=== PATIENT | female | born 1995 ===

== ENCOUNTER 2019-04-22 20:18 | Inpatient (IN) | payer OTHER ==
[2019-04-22 21:41] LABS: Basophils # (Auto) 0.1 K/mm3 (0.0-0.1); Basophils % (Auto) 0.8 % (0.0-1.8); Eosinophils # (Auto) 0.1 K/mm3 (0.0-0.4); Eosinophils % (Auto) 0.6 % (0.0-4.3); Hematocrit 28.5 % (30.3-42.9); Hemoglobin 9.7 gm/dl (10.1-14.3); Lymphocytes # (Auto) 2.1 K/mm3 (1.2-5.4); Lymphocytes % (Auto) 20.6 % (13.4-35.0); Mean Corpuscular HGB Conc 34 % (30-34); Mean Corpuscular Volume 83 fl (79-97); Monocytes # (Auto) 0.6 K/mm3 (0.0-0.8); Monocytes % (Auto) 6.3 % (0.0-7.3); Platelet Count 208 K/mm3 (140-440); Red Blood Count 3.43 M/mm3 (3.65-5.03); Red Cell Distribution Width 15.7 % (13.2-15.2)
--- NOTE | 2019-04-22 21:45 | History and Physical Report ---
History of Present Illness Date of examination: 04/22/19 Date of admission: 04/22/19 20:18 History of present illness: Patient admitted for induction of labor due to course complicated by gestational diabetes requiring insulin patient poorly controlled with poor compliance to management Menstrual History Regularity: regular Menses every: 28 days Duration: 7 LMP: 07/25/2018 LMP reliability: definite LMP character: normal EDC Calculations LMP: 05/01/2019 EDC Confirmation: 05/01/2019 Past History : 2 Term Births: 0 Premature Births: 0 Living Children: 0 Para: 0 Mult. Births: 0 Prev : 0 Aborta: 1 Elect. 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 of genital herpes: no Partner hx. of genital herpes: no Rash, Viral, or Febrile illness since last LMP? no Varicella/Chicken Pox Status: Unknown Genetic History Congenital Heart Defect: Mom: no Dad: no Jose Armando Disease: Mom: no Dad: no Thalassemia Mom: no Dad: no Neural Tube Defect Mom: no Dad: no Down's Syndrome Mom: no Dad: no Roel-Sachs Mom: no Dad: no Sickle Cell Disease/Trait Mom: no Dad: no Hemophilia Mom: no Dad: no Muscular Dystrophy Mom: no Dad: no Cystic Fibrosis Mom: no Dad: no Riley Chorea Mom: no Dad: no Mental Retardation Mom: no Dad: no Fragile X Mom: no Dad: no Other Genetic/Chromosomal Disorder Mom: no Dad: no Child w/other defect Mom: no Dad: no Enviromental Exposures Xray Exposure: no Medication, drug, or alcohol use since LMP: no Chemical/Other Exposure: no Exposure to Cat Liter: no Hx of Parvovirus (Fifth Disease): no Occupational Exposure to Children: none Current Allergies (reviewed today): No known allergies Past History Past Medical History: other (See HPI) Past Surgical History: D&C, other (See HPI) Family/Genetic History: other (See HPI) Social history: other (See HPI) - Obstetrical History Expected Date of Delivery: 05/01/19 Actual Gestation: 38 Week(s) 6 Day(s) : 2 Para: 0 Hx # Term Pregnancies: 0 Number of Pregnancies: 0 Spontaneous Abortions: 1 Induced : 0 Number of Living Children: 0 Medications and Allergies Allergies Allergy/AdvReac Type Severity Reaction Status Date / Time No Known Allergies Allergy Verified 04/22/19 22:03 Home Medications Medication Instructions Recorded Confirmed Last Taken Type Insulin NPH Human Isophane 04/22/19 04/19/19 History [Novolin N] Insulin Regular, Human [Novolin R] 04/22/19 04/19/19 History Lancets [Trueplus Lancets] 04/22/19 04/19/19 History Lancets [Trueplus Lancets] 04/22/19 04/19/19 History - Vital Signs Vital signs: Vital Signs Pulse Pulse Ox 83 96 04/22/19 20:32 04/22/19 20:32 Temp Pulse Resp BP Pulse Ox 99.2 F 82 18 125/83 96 04/22/19 20:33 04/22/19 21:37 04/22/19 20:33 04/22/19 20:34 04/22/19 21:37 - Physical Exam Breasts: Positive: deferred Lungs: Positive: Normal air movement Abdomen: Positive: normal appearance, soft, normal bowel sounds Cervix: Positive: other (per RN) - Obstetrical Uterine Contraction Pattern: Absent Results Result Diagrams: 04/22/19 22:10 All other labs normal. Assessment and Plan - Patient Problems (1) Gestational diabetes Current Visit: Yes Status: Acute Qualifiers: Gestational diabetes mellitus control: unspecified Trimester: third trimester Qualified Code(s): O24.419 - Gestational diabetes mellitus in , unspecified control Plan to address problem: We'll monitor blood sugars on induction initial blood sugar was 80. Patient received Cervidil was seen for cervical ripening with Pitocin plan for in the morning (2) 38 weeks gestation of Current Visit: Yes Status: Acute
[2019-04-22] MEDS ORDERED: BRETHINE SUB-Q PRN (21:51)
[2019-04-22] MEDS ORDERED: BRETHINE IVP PRN (21:51)
[2019-04-22] MEDS ORDERED: PHENERGAN PO PRN (21:51)
[2019-04-22] MEDS ORDERED: XYLOCAINE 2% INFILTRATI ONE (21:51)
[2019-04-22] MEDS ORDERED: CERVIDIL VG ONE (22:00)
[2019-04-22] MEDS ORDERED: PITOCin/NS 20 UNIT/1000ML DRIP 20 UNITS/1,000 ML BAG IV SCH (22:00)
[2019-04-22] MEDS: LACTATED RINGERS 1,000 ML IV SCH (22:19)
[2019-04-22 22:22] LABS: Hematocrit 28.6 % (30.3-42.9); Hemoglobin 9.9 gm/dl (10.1-14.3)
--- NOTE | 2019-04-23 07:23 | Progress Note ---
Assessment and Plan pt resting, no complaints. cervidil removed, SVE unchanged from last. cervix long but soft. Will allow breakfast and then start pitocin for IOL. reviewed with patient, all questions addressed. - Patient Problems (1) Polyhydramnios Current Visit: Yes Status: Acute Qualifiers: Fetus number: single or unspecified fetus Trimester: third trimester Qualified Code(s): O40.3XX0 - Polyhydramnios, third trimester, not applicable or unspecified (2) 38 weeks gestation of Current Visit: Yes Status: Acute (3) Gestational diabetes Current Visit: Yes Status: Acute Qualifiers: Gestational diabetes mellitus control: unspecified Trimester: third trimester Qualified Code(s): O24.419 - Gestational diabetes mellitus in , unspecified control Plan to address problem: 2199 ADA diet monitor accuchecks no insulin orders at this time. Subjective - Subjective Date of service: 04/23/19 Principal diagnosis: IOL for Polyhydramnios, poorly controlled GDM on insulin Patient reports: movement normal, no new complaints, no loss of fluid, no vaginal bleeding, no contractions Objective - Vital Signs Vital Signs: Vital Signs - 12hr 04/22/19 04/22/19 04/22/19 20:32 20:33 20:34 Temperature 99.2 F Pulse Rate 83 76 77 Respiratory 18 Rate Blood Pressure 125/83 Blood Pressure 125/83 [Left] O2 Sat by Pulse 96 96 93 Oximetry 04/22/19 04/22/19 04/22/19 20:37 20:42 20:47 Temperature Pulse Rate 80 82 77 Respiratory Rate Blood Pressure Blood Pressure [Left] O2 Sat by Pulse 96 94 97 Oximetry 04/22/19 04/22/19 04/22/19 20:52 20:57 21:02 Temperature Pulse Rate 77 77 87 Respiratory Rate Blood Pressure Blood Pressure [Left] O2 Sat by Pulse 96 96 96 Oximetry 04/22/19 04/22/19 04/22/19 21:07 21:08 21:12 Temperature Pulse Rate 80 85 70 Respiratory Rate Blood Pressure Blood Pressure [Left] O2 Sat by Pulse 97 84 96 Oximetry 04/22/19 04/22/19 04/22/19 21:17 21:22 21:27 Temperature Pulse Rate 75 75 75 Respiratory Rate Blood Pressure Blood Pressure [Left] O2 Sat by Pulse 97 97 96 Oximetry 04/22/19 04/22/1919 21:32 21:37 21:42 Temperature Pulse Rate 71 82 84 Respiratory Rate Blood Pressure Blood Pressure [Left] O2 Sat by Pulse 97 96 97 Oximetry 04/22/19 04/22/19 04/22/19 21:47 21:52 21:57 Temperature Pulse Rate 81 74 77 Respiratory Rate Blood Pressure Blood Pressure [Left] O2 Sat by Pulse 97 97 96 Oximetry 04/22/19 04/22/19 04/22/19 22:02 22:05 22:07 Temperature Pulse Rate 61 75 77 Respiratory Rate Blood Pressure Blood Pressure [Left] O2 Sat by Pulse 96 94 96 Oximetry 04/23/19 04/23/19 04/23/19 01:52 01:53 04:39 Temperature Pulse Rate 67 72 72 Respiratory Rate Blood Pressure 141/86 128/74 Blood Pressure [Left] O2 Sat by Pulse 98 94 Oximetry 04/23/19 04:44 Temperature Pulse Rate 64 Respiratory Rate Blood Pressure Blood Pressure [Left] O2 Sat by Pulse 97 Oximetry - Exam Breasts: normal Cardiovascular: Regular rate Lungs: Clear to auscultation, Normal air movement Abdomen: Present: normal appearance, soft Vulva: both: normal Uterus: Present: normal FHR: auscultation normal, category 1 Uterine Contraction Monitor Mode: External Cervical Dilatation: 1 Cervical Effacement Percentage: 40 station: -3 Uterine Contraction Pattern: Irregular Uterine Tone Measurement Phase: Resting Extremities: normal Deep Tendon Reflex Grade: Normal +2 - Labs Labs: Abnormal Labs 04/22/19 04/22/19 21:33 22:10 RBC 3.43 L Hgb 9.7 L 9.9 L Hct 28.5 L 28.6 L RDW 15.7 H Seg Neutrophils % 71.7 H Laboratory Results - last 24 hr 04/22/19 04/22/19 04/22/19 21:33 21:33 22:10 WBC 10.1 RBC 3.43 L Hgb 9.7 L 9.9 L Hct 28.5 L 28.6 L MCV 83 MCH 28 MCHC 34 RDW 15.7 H Plt Count 208 Lymph % (Auto) 20.6 [place] % (Auto) 6.3 Eos % (Auto) 0.6 Baso % (Auto) 0.8 Lymph # 2.1 [place] # 0.6 Eos # 0.1 Baso # 0.1 Seg Neutrophils % 71.7 H Seg Neutrophils # 7.2 POC Glucose Blood Type A POSITIVE Antibody Screen TNR AXEL Antibody Screen Negative 04/22/19 04/23/19 22:13 02:14 WBC RBC Hgb Hct MCV MCH MCHC RDW Plt Count Lymph % (Auto) [place] % (Auto) Eos % (Auto) Baso % (Auto) Lymph # [place] # Eos # Baso # Seg Neutrophils % Seg Neutrophils # POC Glucose 80 72 Blood Type Antibody Screen AXEL Antibody Screen
[2019-04-23] MEDS ORDERED: PITOCin/NS 30 UNIT/500ML 30 UNITS/500 ML BAG IV SCH (08:00)
[2019-04-23] MEDS: LACTATED RINGERS 1,000 ML IV SCH (15:22)
--- NOTE | 2019-04-23 19:27 | Progress Note ---
Assessment and Plan cervix without substantial change, ctx 2-3 minutes, pt denies pain with ctx. discussed options for continued IOL with pitocin/AROM or allow OOB to ambulate, shower, regular diet and repeat cervidil. Pt desires to stop pitocin and repeat cervidil. All questions addressed. - Patient Problems (1) Polyhydramnios Current Visit: Yes Status: Acute Qualifiers: Fetus number: single or unspecified fetus Trimester: third trimester Qualified Code(s): O40.3XX0 - Polyhydramnios, third trimester, not applicable or unspecified (2) 38 weeks gestation of Current Visit: Yes Status: Acute (3) Gestational diabetes Current Visit: Yes Status: Acute Qualifiers: Gestational diabetes mellitus control: unspecified Trimester: third trimester Qualified Code(s): O24.419 - Gestational diabetes mellitus in , unspecified control Subjective - Subjective Date of service: 04/23/19 Principal diagnosis: IUP @ 38+5: IOL for Polyhydramnios, poorly controlled GDM on insulin Patient reports: movement normal, other (denies pain with ctx), no new complaints, no loss of fluid, no vaginal bleeding, no contractions Objective - Vital Signs Vital Signs: Vital Signs - 12hr 04/23/19 04/23/19 04/23/19 07:44 12:08 14:45 Temperature Pulse Rate 57 L 74 73 Respiratory Rate Blood Pressure 132/75 98/54 131/74 04/23/19 04/23/19 04/23/19 15:17 15:46 16:16 Temperature Pulse Rate 70 60 76 Respiratory Rate Blood Pressure 107/59 145/85 127/61 04/23/19 04/23/19 04/23/19 16:46 17:04 17:24 Temperature 98.3 F Pulse Rate 56 L 68 Respiratory Rate Blood Pressure 111/57 135/67 04/23/19 04/23/19 04/23/19 18:03 18:16 19:15 Temperature Pulse Rate 57 L 58 L 65 Respiratory Rate Blood Pressure 136/63 139/77 115/57 04/23/19 19:22 Temperature 97.9 F Pulse Rate Respiratory 20 Rate Blood Pressure - Exam Breasts: normal Cardiovascular: Regular rate Lungs: Clear to auscultation, Normal air movement Abdomen: Present: normal appearance, soft Vulva: both: normal Uterus: Present: normal FHR: auscultation normal, category 1 Uterine Contraction Monitor Mode: External Cervical Dilatation: 1.5 Cervical Effacement Percentage: 60 station: -2 Uterine Contraction Frequency (min): 2-4 Uterine Contraction Duration: 60 Uterine Contraction Pattern: Regular Uterine Tone Measurement Phase: Contraction Uterine Contraction Intensity: Mild Extremities: normal Deep Tendon Reflex Grade: Normal +2 - Labs Labs: Abnormal Labs 04/22/19 04/22/19 21:33 22:10 RBC 3.43 L Hgb 9.7 L 9.9 L Hct 28.5 L 28.6 L RDW 15.7 H Seg Neutrophils % 71.7 H Laboratory Results - last 24 hr 04/22/19 04/22/19 04/22/19 21:33 21:33 21:33 WBC 10.1 RBC 3.43 L Hgb 9.7 L Hct 28.5 L MCV 83 MCH 28 MCHC 34 RDW 15.7 H Plt Count 208 Lymph % (Auto) 20.6 [place] % (Auto) 6.3 Eos % (Auto) 0.6 Baso % (Auto) 0.8 Lymph # 2.1 [place] # 0.6 Eos # 0.1 Baso # 0.1 Seg Neutrophils % 71.7 H Seg Neutrophils # 7.2 POC Glucose RPR Nonreactive Blood Type A POSITIVE Antibody Screen TNR AXEL Antibody Screen Negative 04/22/19 04/22/19 04/23/19 22:10 22:13 02:14 WBC RBC Hgb 9.9 L Hct 28.6 L MCV MCH MCHC RDW Plt Count Lymph % (Auto) [place] % (Auto) Eos % (Auto) Baso % (Auto) Lymph # [place] # Eos # Baso # Seg Neutrophils % Seg Neutrophils # POC Glucose 80 72 RPR Blood Type Antibody Screen AXEL Antibody Screen 04/23/19 14:38 WBC RBC Hgb Hct MCV MCH MCHC RDW Plt Count Lymph % (Auto) [place] % (Auto) Eos % (Auto) Baso % (Auto) Lymph # [place] # Eos # Baso # Seg Neutrophils % Seg Neutrophils # POC Glucose 77 RPR Blood Type Antibody Screen AXEL Antibody Screen
[2019-04-23] MEDS ORDERED: CERVIDIL VG ONE (22:00)
[2019-04-24] MEDS ORDERED: AMPICILLIN/NS 2 GM/100 ML 2 GM/100 ML BAG IV ONE (05:34)
--- NOTE | 2019-04-24 09:04 | Progress Note ---
Assessment and Plan Cervidil in place at this time. Patient reports being comfortable, denies any pain or feeling contractions. Will continue cervidil until 1045 and plan to start pitocin. Cat 1 tracing at this time. VSSAF. Subjective - Subjective Date of service: 04/24/19 Principal diagnosis: IUP @ 39IOL for Polyhydramnios, poorly controlled GDM on insulin Patient reports: movement normal, other (denies pain with ctx), no new complaints, no loss of fluid, no vaginal bleeding, no contractions Objective - Vital Signs Vital Signs: Vital Signs - 12hr 04/23/19 04/24/19 04/24/19 22:51 03:25 08:37 Pulse Rate 73 64 72 Blood Pressure 121/71 133/80 128/83 - Exam Breasts: normal Cardiovascular: Regular rate, Normal S1, Normal S2 Lungs: Clear to auscultation Abdomen: Present: normal appearance, soft, normal bowel sounds. Absent: distention, tenderness Vulva: both: normal Uterus: Present: normal FHR: auscultation normal Uterine Contraction Monitor Mode: External Uterine Contraction Pattern: Regular Uterine Tone Measurement Phase: Contraction Uterine Contraction Intensity: Mild Extremities: normal - Labs Labs: Abnormal Labs 04/22/19 04/22/19 21:33 22:10 RBC 3.43 L Hgb 9.7 L 9.9 L Hct 28.5 L 28.6 L RDW 15.7 H Seg Neutrophils % 71.7 H Laboratory Results - last 24 hr 04/22/19 04/23/19 04/23/19 21:33 14:38 20:40 POC Glucose 77 85 RPR Nonreactive 04/24/19 04:08 POC Glucose 72 RPR
[2019-04-24] MEDS ORDERED: PITOCin/NS 30 UNIT/500ML 30 UNITS/500 ML BAG IV SCH (11:15)
[2019-04-24] MEDS: LACTATED RINGERS 1,000 ML IV SCH (18:45)
--- NOTE | 2019-04-24 21:45 | Progress Note ---
Assessment and Plan SVE remains unchanged since cervidil discontinued this AM. Offered patient to continue pitocin or discontinue and allow patient to eat, shower, and repeat cervidil. Patient elects for repeat cervidil. Dr. Garg notified and agrees with POC. RN notified of POC, d/c pitocin at this time. Subjective - Subjective Date of service: 04/24/19 Principal diagnosis: IUP @ 39w0d: IOL for Polyhydramnios, poorly controlled GDM on insulin Patient reports: movement normal, contractions (reports occasional, mild, painless), no new complaints, no loss of fluid, no vaginal bleeding Objective - Vital Signs Vital Signs: Vital Signs - 12hr 04/24/19 04/24/19 04/24/19 11:56 12:13 13:54 Temperature 98.4 F 98.1 F Pulse Rate 68 60 Respiratory 20 22 Rate Blood Pressure 139/67 124/72 Blood Pressure [Left] 04/24/19 04/24/19 04/24/19 14:24 14:54 15:25 Temperature Pulse Rate 63 56 L 67 Respiratory Rate Blood Pressure 123/69 106/62 123/66 Blood Pressure [Left] 04/24/19 04/24/19 04/24/19 15:54 16:04 16:41 Temperature 98.6 F Pulse Rate 59 L 60 Respiratory 20 Rate Blood Pressure 119/57 131/84 Blood Pressure [Left] 04/24/19 04/24/19 04/24/19 17:24 17:53 18:24 Temperature Pulse Rate 57 L 66 58 L Respiratory Rate Blood Pressure 126/67 124/77 118/69 Blood Pressure [Left] 04/24/19 04/24/19 04/24/19 19:23 19:49 19:52 Temperature 98.5 F Pulse Rate 57 L 67 Respiratory 18 Rate Blood Pressure 139/71 120/66 Blood Pressure 120/66 [Left] 04/24/19 04/24/19 04/24/19 19:53 20:24 20:55 Temperature Pulse Rate 68 54 L 58 L Respiratory Rate Blood Pressure 122/65 137/66 137/69 Blood Pressure [Left] - Exam Breasts: normal Cardiovascular: Regular rate, Normal S1, Normal S2 Lungs: Clear to auscultation Abdomen: Present: normal appearance, soft. Absent: distention, tenderness Vulva: both: normal Uterus: Present: normal FHR: auscultation normal Uterine Contraction Monitor Mode: External Cervical Dilatation: 1.5 Cervical Effacement Percentage: 60 station: -2 Uterine Contraction Frequency (min): 3-5 Uterine Contraction Duration: 60-90 Uterine Contraction Pattern: Regular Uterine Tone Measurement Phase: Contraction Uterine Contraction Intensity: Mild Extremities: normal Deep Tendon Reflex Grade: Normal +2 - Labs Labs: Abnormal Labs 04/22/19 04/22/19 21:33 22:10 RBC 3.43 L Hgb 9.7 L 9.9 L Hct 28.5 L 28.6 L RDW 15.7 H Seg Neutrophils % 71.7 H Laboratory Results - last 24 hr 04/24/19 04/24/19 04/24/19 04:08 10:53 20:17 POC Glucose 72 81 72
[2019-04-24] MEDS ORDERED: CERVIDIL VG ONE (22:56)
[2019-04-25] MEDS: STADOL IV PRN ×2 (08:53→13:32)
--- NOTE | 2019-04-25 09:24 | Progress Note ---
Assessment and Plan Will cont Cervidil AM care and diet this AM Start pitocin after remove cervidil. Subjective - Subjective Date of service: 04/25/19 Principal diagnosis: IUP @ 39IOL for Polyhydramnios, poorly controlled GDM on insulin Patient reports: movement normal, other (denies pain with ctx), no new complaints, no loss of fluid, no vaginal bleeding, no contractions Objective - Vital Signs Vital Signs: Vital Signs - 12hr 04/24/19 04/25/19 23:15 06:12 Pulse Rate 84 71 Blood Pressure 90/56 120/57 - Exam Breasts: deferred Cardiovascular: Regular rate Lungs: Normal air movement Abdomen: Present: normal appearance, soft. Absent: distention, tenderness Uterus: Present: normal FHR: auscultation normal, category 1 Uterine Contraction Monitor Mode: External Cervical Dilatation: 1 (RN exam) Cervical Effacement Percentage: 60 (cervidil in place) station: -4 Uterine Contraction Pattern: Irregular Uterine Tone Measurement Phase: Resting Uterine Contraction Intensity: Moderate Extremities: edema Deep Tendon Reflex Grade: Normal +2 - Labs Labs: Abnormal Labs 04/22/19 04/22/19 21:33 22:10 RBC 3.43 L Hgb 9.7 L 9.9 L Hct 28.5 L 28.6 L RDW 15.7 H Seg Neutrophils % 71.7 H Laboratory Results - last 24 hr 04/24/19 04/24/19 04/25/19 10:53 20:17 06:15 POC Glucose 81 72 86
[2019-04-25] MEDS: LACTATED RINGERS 1,000 ML IV SCH ×3 (11:32→14:54)
--- NOTE | 2019-04-25 11:56 | Progress Note ---
Assessment and Plan Pt c/o worsening pain with ctx Pain meds given SVE 2-3,50,-3 ISE/IUPC placed Lg amt of clear fluid Cervidil out Will start pit per protocol Subjective - Subjective Date of service: 04/25/19 (pt c/o worsening pain) Principal diagnosis: IUP @ 39IOL for Polyhydramnios, poorly controlled GDM on insulin Patient reports: movement normal, contractions, other (denies pain with ctx), no new complaints, no loss of fluid, no vaginal bleeding Objective - Vital Signs Vital Signs: Vital Signs - 12hr 04/25/19 04/25/19 06:12 10:57 Pulse Rate 71 74 Blood Pressure 120/57 137/74 - Exam Breasts: deferred Cardiovascular: Regular rate Lungs: Normal air movement Abdomen: Present: normal appearance, soft. Absent: distention, tenderness Uterus: Present: normal FHR: auscultation normal, category 1 Uterine Contraction Monitor Mode: Internal Cervical Dilatation: 2.5 (ROM lg amt fluid) Cervical Effacement Percentage: 50 (internals placed) station: -3 Uterine Contraction Pattern: Regular Uterine Tone Measurement Phase: Resting Uterine Contraction Intensity: Moderate Extremities: edema Deep Tendon Reflex Grade: Normal +2 - Labs Labs: Abnormal Labs 04/22/19 04/22/19 21:33 22:10 RBC 3.43 L Hgb 9.7 L 9.9 L Hct 28.5 L 28.6 L RDW 15.7 H Seg Neutrophils % 71.7 H Laboratory Results - last 24 hr 04/24/19 04/25/19 20:17 06:15 POC Glucose 72 86
[2019-04-25] MEDS ORDERED: PITOCin/NS 30 UNIT/500ML 30 UNITS/500 ML BAG IV SCH (12:30)
[2019-04-25] MEDS ORDERED: fentaNYL-BUPIV 2 MCG/ML-0.125% 200 MCG/100 ML BAG EPIDURAL ONE (15:22)
[2019-04-25 15:28] LABS: Basophils % (Auto) 0.3 % (0.0-1.8); Eosinophils % (Auto) 0.3 % (0.0-4.3); Hematocrit 31.5 % (30.3-42.9); Hemoglobin 10.6 gm/dl (10.1-14.3); Lymphocytes # (Auto) 1.6 K/mm3 (1.2-5.4); Lymphocytes % (Auto) 13.3 % (13.4-35.0); Mean Corpuscular HGB Conc 34 % (30-34); Mean Corpuscular Volume 83 fl (79-97); Monocytes # (Auto) 0.6 K/mm3 (0.0-0.8); Monocytes % (Auto) 4.7 % (0.0-7.3); Platelet Count 185 K/mm3 (140-440); Red Blood Count 3.79 M/mm3 (3.65-5.03)
[2019-04-25] MEDS ORDERED: MARCAINE 0.25% INFILTRATI ONE ×2 (15:39→21:11)
[2019-04-25] MEDS ORDERED: NARCAN 2 MG/2 ML IV PRN (16:10)
--- NOTE | 2019-04-25 16:10 | Anesthesia Consultation ---
Anesthesia Consult and Med Hx Date of service: 04/25/19 - Airway Anesthetic Teeth Evaluation: Good ROM Head & Neck: Adequate Mental/Hyoid Distance: Adequate Mallampati Class: Class II Intubation Access Assessment: Probably Good - Pulmonary Exam CTA: Yes - Cardiac Exam Cardiac Exam: RRR - Pre-Operative Health Status ASA Pre-Surgery Classification: ASA2, Emergency Proposed Anesthetic Plan: Epidural - Pulmonary Hx Asthma: No COPD: No Hx Pneumonia: No - Cardiovascular System Hx Hypertension: No - Central Nervous System Hx Seizures: No Hx Psychiatric Problems: No - Endocrine Hx Renal Disease: No Hx End Stage Renal Disease: No Hx Insulin Dependent Diabetes: Yes Hx Hypothyroidism: No Hx Hyperthyroidism: No - Hematic Hx Anemia: No Hx Sickle Cell Disease: No - Other Systems Hx Alcohol Use: No
[2019-04-25] MEDS ORDERED: fentaNYL-BUPIV 2 MCG/ML-0.125% 200 MCG/100 ML BAG EPIDURAL SCH (17:00)
[2019-04-25] MEDS ORDERED: REGLAN IV SCH (17:22)
[2019-04-25] MEDS ORDERED: PEPCID IV SCH (17:22)
[2019-04-25] MEDS ORDERED: ceFAZolin 3 GM in NACL 0.9% 100 ML IV NR (17:30)
--- NOTE | 2019-04-25 17:33 | Progress Note ---
Assessment and Plan Explained findings and lack of cervical chg despite adequate labor. decision to move to operative delivery Pt given risks, damage to other organs, bleeding, need for c/s with future pregnancies. Consents signed Orders in EMR Subjective - Subjective Date of service: 04/25/19 (No cervical chg X 5 hours) Principal diagnosis: IUP @ 39IOL for Polyhydramnios, poorly controlled GDM on insulin Patient reports: movement normal, contractions, other (denies pain with ctx), no new complaints, no loss of fluid, no vaginal bleeding Objective - Vital Signs Vital Signs: Vital Signs - 12hr 04/25/19 04/25/19 04/25/19 06:12 10:57 12:25 Temperature 98.3 F Pulse Rate 71 74 Respiratory Rate Blood Pressure 120/57 137/74 O2 Sat by Pulse Oximetry 04/25/19 04/25/19 04/25/19 12:28 12:43 13:32 Temperature Pulse Rate 71 55 L Respiratory 14 Rate Blood Pressure 146/87 151/92 O2 Sat by Pulse Oximetry 04/25/19 04/25/19 04/25/19 13:45 14:43 15:44 Temperature Pulse Rate 53 L 57 L 59 L Respiratory Rate Blood Pressure 152/77 131/75 O2 Sat by Pulse 98 Oximetry 04/25/19 04/25/19 04/25/19 15:45 15:49 15:54 Temperature Pulse Rate 56 L 63 80 Respiratory Rate Blood Pressure 141/77 141/79 O2 Sat by Pulse 98 98 Oximetry 04/25/19 04/25/19 04/25/19 15:59 16:00 16:01 Temperature Pulse Rate 69 74 70 Respiratory Rate Blood Pressure 126/66 O2 Sat by Pulse 97 94 Oximetry 04/25/19 04/25/19 04/25/19 16:04 16:07 16:09 Temperature Pulse Rate 80 58 L 66 Respiratory Rate Blood Pressure 131/77 O2 Sat by Pulse 98 97 Oximetry 04/25/19 04/25/19 04/25/19 16:12 16:14 16:16 Temperature Pulse Rate 58 L 61 60 Respiratory Rate Blood Pressure 126/71 125/77 O2 Sat by Pulse 97 Oximetry 04/25/19 04/25/19 04/25/19 16:19 16:22 16:24 Temperature Pulse Rate 65 56 L 71 Respiratory Rate Blood Pressure 125/70 O2 Sat by Pulse 97 98 Oximetry 04/25/19 04/25/19 04/25/19 16:26 16:29 16:31 Temperature Pulse Rate 55 L 66 58 L Respiratory Rate Blood Pressure 128/79 129/71 O2 Sat by Pulse 98 Oximetry 04/25/19 04/25/19 04/25/19 16:34 16:36 16:39 Temperature Pulse Rate 63 67 59 L Respiratory Rate Blood Pressure 126/70 O2 Sat by Pulse 98 98 Oximetry 04/25/19 04/25/19 04/25/19 16:41 16:44 16:47 Temperature Pulse Rate 60 65 55 L Respiratory Rate Blood Pressure 119/70 123/73 O2 Sat by Pulse 99 Oximetry 04/25/19 04/25/19 04/25/19 16:49 16:53 16:54 Temperature Pulse Rate 58 L 55 L 59 L Respiratory Rate Blood Pressure 137/75 O2 Sat by Pulse 100 99 Oximetry 04/25/19 04/25/19 04/25/19 16:56 16:59 17:01 Temperature Pulse Rate 60 60 55 L Respiratory Rate Blood Pressure 125/71 126/71 O2 Sat by Pulse 99 Oximetry 04/25/19 04/25/19 04/25/19 17:04 17:06 17:09 Temperature Pulse Rate 69 58 L 59 L Respiratory Rate Blood Pressure 129/76 O2 Sat by Pulse 100 99 Oximetry 04/25/19 04/25/19 04/25/19 17:11 17:14 17:17 Temperature Pulse Rate 60 61 69 Respiratory Rate Blood Pressure 125/73 129/74 O2 Sat by Pulse 99 Oximetry 04/25/19 04/25/19 04/25/19 17:19 17:21 17:24 Temperature Pulse Rate 73 79 81 Respiratory Rate Blood Pressure 126/74 O2 Sat by Pulse 100 100 Oximetry 04/25/19 17:29 Temperature Pulse Rate 68 Respiratory Rate Blood Pressure O2 Sat by Pulse 100 Oximetry - Exam Breasts: deferred Cardiovascular: Regular rate Lungs: Normal air movement Abdomen: Present: normal appearance FHR: category 1 Uterine Contraction Monitor Mode: Internal Uterine Contraction Pattern: Regular Uterine Contraction Intensity: Moderate Extremities: edema Deep Tendon Reflex Grade: Normal +2 - Labs Labs: Abnormal Labs 04/22/19 04/22/19 04/25/19 21:33 22:10 14:24 WBC 11.9 H RBC 3.43 L Hgb 9.7 L 9.9 L Hct 28.5 L 28.6 L RDW 15.7 H 16.0 H Lymph % (Auto) 13.3 L Seg Neutrophils % 71.7 H 81.4 H Seg Neutrophils # 9.7 H Laboratory Results - last 24 hr 04/24/19 04/25/19 04/25/19 20:17 06:15 14:24 WBC 11.9 H RBC 3.79 Hgb 10.6 Hct 31.5 MCV 83 MCH 28 MCHC 34 RDW 16.0 H Plt Count 185 Lymph % (Auto) 13.3 L [place] % (Auto) 4.7 Eos % (Auto) 0.3 Baso % (Auto) 0.3 Lymph # 1.6 [place] # 0.6 Eos # 0.0 Baso # 0.0 Seg Neutrophils % 81.4 H Seg Neutrophils # 9.7 H POC Glucose 72 86
[2019-04-25] MEDS ORDERED: PITOCin/NS 20 UNIT/1000ML DRIP 20 UNITS/1,000 ML BAG IV SCH (18:00)
[2019-04-25] MEDS ORDERED: LACTATED RINGERS 1,000 ML IV SCH (18:00)
[2019-04-25] MEDS ORDERED: BICITRA PO SCH (18:22)
[2019-04-25] MEDS ORDERED: ANCEF/STERILE WATER 2 GM/20 ML 2 GM/20 ML SYRINGE IV ONE (21:39)
[2019-04-25] MEDS ORDERED: DECADRON ONE (21:56)
[2019-04-25] MEDS ORDERED: TORADOL ONE (21:56)
[2019-04-25] MEDS ORDERED: BENADRYL ONE (21:56)
--- NOTE | 2019-04-25 22:29 | Operative Report ---
Operative Report Operative Report: Date of procedure: 04/25/2019 Pre-operative diagnosis:. at 39 weeks with gestational diabetes faile d induction with failure of descent and dilatation Post-operative diagnosis: Same Procedure name(s): Primary low transverse section Surgeon: Ernesto Reynoso MD Macroeconomics Professor: Kami Jay, certified nurse overnight cashier Anesthesia: Epidural EBL: 500 mL Complications: None Findings: Patient with normal uterus tubes and ovaries bilateral. Male weighing 8 lbs. 5 oz. Apgars 8 at 1 minute and 9 at 5 minutes Specimen(s): None Procedure: The patient was brought to the operating room. Her epidural was dosed was placed without any complications. She was then placed in left lateral tilt. Prepped and draped in the usual sterile manner. After testing for adequate anesthesia level, a Pfannenstiel incision was made. This incision was taken down to the fascia. The fascia was then nicked in the midline. This incision was extended out laterally with Shetty scissors. The fascia was then sharply and bluntly from the underlying rectus muscles. The rectus muscles were bluntly and sharply . The peritoneum was then entered with the still operator helper's fingers. This incision was spread vertically with care not to damage the bladder below. Bladder blade was placed. The bladder flap was then formed sharply and bluntly with Metzenbaum scissors. A transverse incision was made in lower uterine segment. This incision was extended laterally with the operators fingers. The amniotic sac was then entered bluntly with the still operator helper's fingers. The was delivered from the vertex position with assistance of vacuum. Bulb suction on the mother's abdomen. Cord was double clamped and cut. The was then passed to the nursery personnel who were in attendance. The above scores were given by the nursery personnel. The placenta was then bluntly removed. The uterus was then externalized and wiped clean the remaining products. The uterine incision was closed in layers. The first incision was closed in a locking manner using 0 Vicryl. This was followed by imbricating stitch also with 0 Vicryl. This closure was hemostatic. The bladder flap was copiously irrigated and found to be hemostatic. The pelvis was copiously irrigated and found to be hemostatic. The uterus was then placed back to the patient's abdomen. The retractors were removed. The rectus muscles were inspected and found to be hemostatic. The fascia was then closed in a running manner using 0 Vicryl. This incision was hemostatic irrigation Bovie. The skin was reapproximated with 4-0 Vicryl subcuticularly. The patient tolerated procedure well. Her urine was clear. The was admitted to the [facility] baby nursery. The patient was accompanied to recovery room in good condition. Instrument count correct times 3.
--- NOTE | 2019-04-25 22:34 | Anesthesia Day of Surgery ---
Anesthesia Day of Surgery - Day of Surgery Patient Examined: Yes Patient H&P Reviewed: Yes Patient is NPO: Yes Yunior's Test: N/A
[2019-04-25] MEDS ORDERED: PHENERGAN PR PRN (22:35)
[2019-04-25] MEDS ORDERED: PHENERGAN PO PRN (22:35)
[2019-04-25] MEDS ORDERED: NARCAN 0.4 MG/1 ML IV PRN (22:35)
[2019-04-25] MEDS ORDERED: DILAUDID IV PRN (22:35)
[2019-04-25] MEDS ORDERED: MORPHINE IV PRN (22:35)
[2019-04-25] MEDS ORDERED: ZOFRAN IV PRN (22:35)
--- NOTE | 2019-04-25 22:35 | Post Anesthesia Evaluation ---
- Post Anesthesia Evaluation Patient Participated: Yes Airway Patent: Yes Stable Respiratory Function: Yes Nausea/Vomiting: No Temp > 96.8F: Yes Pain Manageable: Yes Adequeate Hydration: Yes Anesthesia Complications: No Block Receding Appropriately: Yes Patient on Ventilator: No
[2019-04-25] MEDS ORDERED: SODIUM CHLORIDE FLUSH SYRINGE 10 ML IV NR (23:00)
[2019-04-26] MEDS ORDERED: LANSINOH TP PRN (05:03)
[2019-04-26] MEDS ORDERED: NARCAN 0.4 MG/1 ML IV PRN (05:03)
[2019-04-26] MEDS ORDERED: SODIUM CHLORIDE FLUSH SYRINGE 10 ML IV NR (05:03)
[2019-04-26] MEDS ORDERED: MILK OF MAGNESIA PO PRN (05:03)
[2019-04-26] MEDS ORDERED: TUCKS PAD TP PRN (05:03)
[2019-04-26] MEDS ORDERED: NACL 0.9% 1000 ML 1,000 ML IV SCH (05:03)
[2019-04-26] MEDS ORDERED: PITOCin/NS 20 UNIT/1000ML DRIP 20 UNITS/1,000 ML BAG IV SCH (05:03)
[2019-04-26] MEDS: ANCEF/NS 1 GM/50 ML 1 GM/50 ML BAG IV SCH ×2 (05:31→14:22)
[2019-04-26] MEDS: TORADOL IV SCH ×3 (05:34→16:29)
--- NOTE | 2019-04-26 07:49 | Progress Note ---
Assessment and Plan pt doing well <12hrs postop, + flatus, incision D&I, lochia scant afebrile, b/p 130-140's/70-80's. Discussed expectations for today. H&H ordered for 1029 this morning. Continue postop pathway. - Patient Problems (1) delivery delivered Current Visit: Yes Status: Acute Subjective - Subjective Date of service: 04/26/19 Principal diagnosis: postop day #1 s/p primary c/s Patient reports: appetite normal, pain well controlled, flatus Cambria: doing well, bottle feeding Objective - Vital Signs Latest vital signs: Vital Signs Temp Pulse Resp BP BP Pulse Ox 04/26/19 01:20 97.9 F 59 L 20 141/76 98 04/26/19 01:10 141/76 04/25/19 23:35 98.3 F 61 12 142/80 98 04/25/19 23:20 60 11 L 136/77 97 04/25/19 23:05 61 11 L 138/75 97 04/25/19 22:50 61 12 138/77 97 04/25/19 22:45 59 L 11 L 146/79 97 04/25/19 22:40 59 L 13 135/77 98 04/25/19 22:35 98.9 F 59 L 15 130/68 98 04/25/19 20:58 63 97 04/25/19 20:53 64 97 04/25/19 20:48 65 97 04/25/19 20:43 78 97 04/25/19 20:38 65 97 04/25/19 20:33 68 97 04/25/19 20:28 67 97 04/25/19 20:23 65 97 04/25/19 20:22 63 135/78 04/25/19 20:18 76 98 04/25/19 20:13 69 97 04/25/19 20:12 70 132/75 04/25/19 20:08 64 97 04/25/19 20:03 63 97 04/25/19 19:58 64 98 04/25/19 19:53 64 97 04/25/19 19:48 65 97 04/25/19 19:43 62 97 04/25/19 19:38 68 97 04/25/19 19:33 74 97 04/25/19 19:28 74 95 04/25/19 19:22 60 118/75 04/25/19 18:43 57 L 04/25/19 18:39 58 L 73 L 04/25/19 18:34 62 76 L 04/25/19 18:29 64 83 L 04/25/19 18:24 67 80 L 04/25/19 18:23 66 130/73 04/25/19 18:21 76 L 04/25/19 18:08 70 93 04/25/19 17:59 64 99 04/25/19 17:54 89 100 04/25/19 17:49 65 100 04/25/19 17:44 64 100 04/25/19 17:39 68 100 04/25/19 17:34 63 100 04/25/19 17:29 68 100 04/25/19 17:24 81 100 04/25/19 17:21 79 126/74 04/25/19 17:19 73 100 04/25/19 17:17 69 129/74 04/25/19 17:14 61 99 04/25/19 17:11 60 125/73 04/25/19 17:09 59 L 99 04/25/19 17:06 58 L 129/76 04/25/19 17:04 69 100 04/25/19 17:01 55 L 126/71 04/25/19 16:59 60 99 04/25/19 16:56 60 125/71 04/25/19 16:54 59 L 99 04/25/19 16:53 55 L 137/75 04/25/19 16:49 58 L 100 04/25/19 16:47 55 L 123/73 04/25/19 16:44 65 99 04/25/19 16:41 60 119/70 04/25/19 16:39 59 L 98 04/25/19 16:36 67 126/70 04/25/19 16:34 63 98 04/25/19 16:31 58 L 129/71 04/25/19 16:29 66 98 04/25/19 16:26 55 L 128/79 04/25/19 16:24 71 98 04/25/19 16:22 56 L 125/70 04/25/19 16:19 65 97 04/25/19 16:16 60 125/77 04/25/19 16:14 61 97 04/25/19 16:12 58 L 126/71 04/25/19 16:09 66 97 04/25/19 16:07 58 L 131/77 04/25/19 16:04 80 98 04/25/19 16:01 70 126/66 04/25/19 16:00 74 94 04/25/19 15:59 69 97 04/25/19 15:54 80 98 04/25/19 15:49 63 141/79 98 04/25/19 15:45 56 L 141/77 04/25/19 15:44 59 L 98 04/25/19 14:43 57 L 131/75 04/25/19 13:45 53 L 152/77 04/25/19 13:32 14 04/25/19 12:43 55 L 151/92 04/25/19 12:28 71 146/87 04/25/19 12:25 98.3 F 04/25/19 10:57 74 137/74 Intake and Output 04/25/19 04/25/19 04/26/19 15:59 23:59 07:59 Intake Total 431.233 620 Output Total 250 Balance 431.233 370 Intake: IV 431.233 620 Lactated Ringers 1,000 ml 420.833 @ 125 mls/hr IV DIRECT ROCIO Rx#:[id number] PITOCin/NS 20 UNIT/1000ML 10.400 20 DRIP 20 units In 1,000 ml @ 125 mls/hr IV DIRECT ROCIO Rx#:[id number] Output: Urine 250 Other: Estimated Blood Loss 500 - Exam Breasts: Present: normal Cardiovascular: Present: Regular rate Lungs: Present: Clear to auscultation, Normal air movement Abdomen: Present: normal appearance, soft Vulva: both: normal Uterus: Present: normal, firm Extremities: Present: normal Deep Tendon Reflex Grade: Normal +2 Incision: Present: normal, dry, intact - Labs Labs: Abnormal lab results 04/25/19 Range/Units 14:24 WBC 11.9 H (4.5-11.0) K/mm3 RDW 16.0 H (13.2-15.2) % Lymph % (Auto) 13.3 L (13.4-35.0) % Seg Neutrophils % 81.4 H (40.0-70.0) % Seg Neutrophils # 9.7 H (1.8-7.7) K/mm3
[2019-04-26] MEDS ORDERED: LACTATED RINGERS 1,000 ML IV SCH (11:00)
[2019-04-26 11:19] LABS: Hematocrit 27.1 % (30.3-42.9)
[2019-04-26] MEDS: NORCO 5/325 PO PRN (16:29)
[2019-04-27] MEDS: IBUPROFEN PO PRN ×3 (03:39→18:25)
[2019-04-27] MEDS: NORCO 5/325 PO PRN ×3 (03:39→18:25)
--- NOTE | 2019-04-27 10:51 | Progress Note ---
Assessment and Plan - Patient Problems (1) Gestational diabetes Current Visit: Yes Status: Acute Qualifiers: Gestational diabetes mellitus control: unspecified Trimester: third trimester Qualified Code(s): O24.419 - Gestational diabetes mellitus in , unspecified control Plan to address problem: Normal glucose (2) 38 weeks gestation of Current Visit: Yes Status: Acute (3) delivery delivered Current Visit: Yes Status: Acute Plan to address problem: Postoperative day #2. . Patient without fever. We'll ambulate in halls. We will continue routine postoperative care. Patient's postoperative hematocrit 21.7%. Patient is doing well desires discharge home tomorrow observing her for elevated bilirubin Subjective Date of service: 04/27/19 Patient Reports: Positive: pain is less, tolerating a regular diet, voiding w/o difficulty, flatus, afebrile, other ( is under bili lights /patient plans to breast-feed and unsure about control). Negative: nausea Objective Vital Signs - 12hr 04/27/19 00:30 Temperature 98.6 F Pulse Rate 80 Respiratory 18 Rate Blood Pressure 118/79 [Left] - Respiratory normal expansion - Abdomen soft, tender (appropriately), wound (intact healing well) - Neurologic normal coordination, normal sensation - Psychiatric oriented to time, oriented to person, oriented to place, speech is normal, memory intact - Labs 04/26/19 10:55
[2019-04-28] MEDS: NORCO 5/325 PO PRN ×2 (03:00→10:41)
[2019-04-28] MEDS: IBUPROFEN PO PRN (03:00)
--- NOTE | 2019-04-28 14:19 | Discharge Summary ---
Providers - Providers Date of Admission: 04/25/19 20:18 Date of discharge: 04/28/19 Attending physician: SRIKANTH LUZ 04/26/19 05:03 Consult to Vendor Specialist [CONS] Routine Reason For Exam: Primary care physician: SRIKANTH LUZ Hospitalization Reason for admission: induction of labor Delivery: Procedure: section Episiotomy: none Incision: normal, dry, intact complications: none Discharge diagnosis: IUP at term delivered baby: male Hospital course: Patient was admitted to labor and delivery with complaints of contractions. During labor the patient had nonreassuring tracing with bradycardia and decision was made to move to section. Her post operative course was benign she was afebrile throughout. Patient postoperative day 1 hematocrit was in an acceptable range. Patient had no orthostatic symptoms. Patient was tolerating regular diet and voiding without difficulty at time of discharge. Patient incision was healing well without evidence of infection. Patient is bottle feeding. Condition at discharge: Good Disposition: DC-01 TO HOME OR SELFCARE - Discharge Diagnoses (1) Gestational diabetes Status: Acute Qualifiers: Gestational diabetes mellitus control: unspecified Trimester: third trimester Qualified Code(s): O24.419 - Gestational diabetes mellitus in , unspecified control (2) 38 weeks gestation of Status: Acute (3) delivery delivered Status: Acute Plan - Discharge Medications Prescriptions: Ferrous Sulfate [Feosol 325 MG tab] 325 mg PO BID #60 tablet Ibuprofen [Motrin 800 MG tab] 800 mg PO Q6H PRN #30 tablet PRN Reason: Pain oxyCODONE /ACETAMINOPHEN [Percocet 5/325 mg] 1 - 2 tab PO Q4H PRN #25 tablet PRN Reason: Pain, Moderate - Provider Discharge Summary Activity: routine, no sex for 6 weeks, no heavy lifting 4 weeks, no strenuous exercise Diet: routine Instructions: routine Additional instructions: [] Smoking cessation referral if applicable(refer to patient education folder for contact #) [] Refer to [facility] Booklet Call your doctor immediately for: * Fever > 100.5 * Heavy vaginal bleeding ( >1 pad per hour) * Severe persistent headache * Shortness of breath * Reddened, hot, painful area to leg or breast * Drainage or odor from incision. * Keep incision clean and dry at all times and follow doctor's instructions regarding bathing/showering - Follow up plan Follow up: SRIKANTH LUZ MD [Primary Care Provider] - 7 Days
[2019-04-28 16:33] VITALS: BP 135/81
== END 2019-04-28 16:49 | disposition home or self-care (01) | DRG 765 ==
LOC: LD 20:18 → UNDOADMIN 20:18 → LD 04-25 20:18 → UNDOADMIN 04-25 21:47 → OB 04-26 00:26
PROVIDERS: ADMIT Obstetrics & Gynecology; ATTEND Obstetrics & Gynecology
PROC: 10D00Z1 Extraction of Products of Conception, Low, Open Approach (ICD-10-PCS; principal; 2019-04-25)
PROC: 10H07YZ Insertion of Other Device into Products of Conception, Via Natural or Artificial Opening (ICD-10-PCS; 2019-04-25)
DX: O76 Abnormality in fetal heart rate and rhythm complicating labor and delivery (principal); O40.3XX0 Polyhydramnios, third trimester, not applicable or unspecified; O24.429 Gestational diabetes mellitus in childbirth, unspecified control; O62.1 Secondary uterine inertia; Z90.49 Acquired absence of other specified parts of digestive tract; Z37.0 Single live birth; Z79.4 Long term (current) use of insulin; Z83.3 Family history of diabetes mellitus; Z80.6 Family history of leukemia; Z3A.38 38 weeks gestation of pregnancy; Z79.899 Other long term (current) drug therapy
CPT/HCPCS: 36415; 59200; 82962; 85014; 85018; 85025; 86592; 86850; 86900; 86901; G0378; A6250; J0290; J0595; J0690; J1100; J1170; J1200; J1885; J2590; J2765; J7120; Q0169

== ENCOUNTER 2021-08-18 19:30 | Inpatient (IN) | payer OTHER ==
[~2021-08-18 19:30] MED LIST: ACETAMINOPHEN 325 MG TAB PO PRN; ALBUTEROL 2.5 MG/3 ML NEBU IH PRN; HYDROmorphone 1 MG/1 ML INJ IV PRN; ONDANSETRON 4 MG/2 ML INJ IV PRN; cefTRIAXone/NS 2 GM/100 ML 2 GM/100 ML BAG IV SCH; oxyCODONE /ACETAMINOPHEN 5-325MG TAB PO PRN
[2021-08-18] MEDS ORDERED: ACETAMINOPHEN 325 MG TAB PO ONE (20:59)
--- NOTE | 2021-08-18 21:02 | Emergency Department Report ---
<KHAI KIMBALL - Last Filed: 08/18/21 20:58> - General Chief Complaint: Dyspnea/Respdistress Stated Complaint: SOB PUI?: Yes Time Seen by Provider: 08/18/21 20:55 Source: patient Mode of arrival: Ambulatory Limitations: No Limitations - History of Present Illness Initial Comments: The patient was evaluated in the emergency department for symptoms described in the history of present illness. He/she was evaluated in the context of the global COVID-19 pandemic, which necessitated consideration that the patient might be at risk for infection with the virus that causes COVID-19. Institutional protocols and algorithms that pertain to the evaluation of patients at risk for COVID-19 are in a state of rapid change based on in formation released by regulatory bodies including the CDC and federal and state organizations. These policies and algorithms were followed during the patient's care in the emergency department. Please note that these policies, procedures and recommendations changed on a rapid basis. 25-year-old morbid obese female presents for shortness of breath for 4 days getting worse nausea vomiting decreased appetite. Patient states she tested positive for Covid 3 days ago. She denies any past medical history no known drug allergies and currently takes no meds on a daily basis. Patient st ates with minimal exertion she gets short of breath. MD Complaint: fever, cough, other (sob) Onset/Timin -: days(s) Severity: moderate Consistency: constant Improves With: nothing Worsens With: activity Associated Symptoms: fever, chills, myalgias, cough, shortness of breath, nausea, vomiting Treatments Prior to Arrival: none - Related Data Home Medications Medication Instructions Recorded Confirmed Last Taken Insulin NPH Human Isophane 04/22/19 04/19/19 [Novolin N] Insulin Regular, Human [Novolin R] 04/22/19 04/19/19 Previous Rx's Medication Instructions Recorded Last Taken Type Ferrous Sulfate [Feosol 325 MG tab] 325 mg PO BID #60 tablet 04/27/19 Unknown Rx Ibuprofen [Motrin 800 MG tab] 800 mg PO Q6H PRN #30 tablet 04/27/19 Unknown Rx oxyCODONE /ACETAMINOPHEN [Percocet 1 - 2 tab PO Q4H PRN #25 tablet 04/27/19 Unknown Rx 5/325 mg] Allergies Allergy/AdvReac Type Severity Reaction Status Date / Time No Known Allergies Allergy Verified 08/18/21 20:12 ED Review of Systems Comment: All other systems reviewed and negative ED Past Medical Hx - Past Medical History Hx Hypertension: No Hx Congestive Heart Failure: No Hx Diabetes: No Hx Deep Vein Thrombosis: No Hx Renal Disease: No Hx Sickle Cell Disease: No Hx Seizures: No Hx Asthma: No Hx COPD: No Hx HIV: No - Surgical History Past Surgical History?: No Additional Surgical History: - Social History Smoking Status: Never Smoker - Medications Home Medications: Home Medications Medication Instructions Recorded Confirmed Last Taken Type Insulin NPH Human Isophane 04/22/19 04/19/19 History [Novolin N] Insulin Regular, Human [Novolin R] 04/22/19 04/19/19 History Ferrous Sulfate [Feosol 325 MG tab] 325 mg PO BID #60 tablet 04/27/19 Unknown Rx Ibuprofen [Motrin 800 MG tab] 800 mg PO Q6H PRN #30 tablet 04/27/19 Unknown Rx oxyCODONE /ACETAMINOPHEN [Percocet 1 - 2 tab PO Q4H PRN #25 tablet 04/27/19 Unknown Rx 5/325 mg] ED Physical Exam - General Limitations: No Limitations General appearance: alert, in no apparent distress - Head Head exam: Present: atraumatic, normocephalic - Eye Eye exam: Present: normal appearance - ENT ENT exam: Present: normal external ear exam - Neck Neck exam: Present: normal inspection, full ROM - Respiratory Respiratory exam: Absent: respiratory distress, accessory muscle use - Cardiovascular Cardiovascular Exam: Present: tachycardia - Back Exam Back exam: Present: normal inspection - Neurological Exam Neurological exam: Present: alert, oriented X3, normal gait - Psychiatric Psychiatric exam: Present: normal affect, normal mood - Skin Skin exam: Present: warm, dry, intact, normal color. Absent: rash ED Medical Decision Making - Medical Decision Making 25-year-old morbid obese female presents for shortness of breath for 4 days getting worse nausea vomiting decreased appetite. Patient states she tested positive for Covid 3 days ago. She denies any past medical history no known drug allergies and currently takes no meds on a daily basis. Patient states with minimal exertion she gets short of breath. Patient is ambulatory pulse ox of 90% heart rate went to 149. Chest x-ray CBC CMP EKG has been ordered. ED Disposition Clinical Impression: Person under investigation for COVID-19, COVID-19, Shortness of breath Respiratory failure Qualifiers: Chronicity: acute Respiratory failure complication: hypoxia Qualified Code(s): J96.01 - Acute respiratory failure with hypoxia Fever Qualifiers: Fever type: unspecified Qualified Code(s): R50.9 - Fever, unspecified Pneumonia Qualifiers: Pneumonia type: due to unspecified organism Laterality: bilateral Lung location: unspecified part of lung Qualified Code(s): J18.9 - Pneumonia, unspecified organism Disposition: ADMITTED INPATIENT Condition: Critical <ELOY TURK III - Last Filed: 08/19/21 05:14> - General PUI?: Yes - History of Present Illness MD Complaint: fever, cough, other -: Sudden, days(s) Severity: moderate Consistency: constant Improves With: nothing Worsens With: activity Associated Symptoms: fever, chills, myalgias, cough, shortness of breath, nausea, vomiting Treatments Prior to Arrival: none ED Review of Systems ROS: Stated complaint: SOB Other details as noted in HPI Constitutional: see HPI, chills, fever, malaise Eyes: denies: eye pain, eye discharge, vision change ENT: denies: ear pain, throat pain Respiratory: see HPI, cough, shortness of breath, SOB with exertion, SOB at rest. denies: wheezing Cardiovascular: denies: chest pain, palpitations Endocrine: no symptoms reported Gastrointestinal: nausea, vomiting. denies: abdominal pain, diarrhea Genitourinary: denies: urgency, dysuria, discharge Musculoskeletal: denies: back pain, joint swelling, arthralgia Skin: denies: rash, lesions Neurological: denies: headache, weakness, paresthesias Psychiatric: denies: anxiety, depression Hematological/Lymphatic: denies: easy bleeding, easy bruising ED Past Medical Hx - Past Medical History Previous Medical History?: No - Surgical History Past Surgical History?: Yes - Family History Family history: no significant - Social History Smoking Status: Never Smoker Substance Use Type: None ED Physical Exam - General General appearance: alert, in no apparent distress - Head Head exam: Present: atraumatic, normocephalic - Eye Eye exam: Present: normal appearance - ENT ENT exam: Present: mucous membranes moist - Neck Neck exam: Present: normal inspection, full ROM - Respiratory Respiratory exam: Present: decreased breath sounds - Cardiovascular Cardiovascular Exam: Present: regular rate, normal rhythm. Absent: systolic murmur, diastolic murmur, rubs, gallop - GI/Abdominal GI/Abdominal exam: Present: soft, normal bowel sounds - Extremities Exam Extremities exam: Present: normal inspection - Back Exam Back exam: Present: normal inspection - Neurological Exam Neurological exam: Present: alert, oriented X3, normal gait - Psychiatric Psychiatric exam: Present: normal affect, normal mood - Skin Skin exam: Present: warm, dry, intact, normal color. Absent: rash ED Course Vital Signs 08/18/21 20:09 Temperature 101.9 F H Pulse Rate 109 H Respiratory 18 Rate Blood Pressure 115/65 O2 Sat by Pulse 92 Oximetry - Reevaluation(s) Reevaluation #1: I reviewed the findings and management of this patient in real-time and I have personally seen and examined this patient and participated in the decision making for this patient with the midlevel. Patient is a 25-year-old female that presents emergency room with complaints of shortness of breath, cough, fever, chills, shortness of breath, Covid symptoms. Patient states she was diagnosed with Covid 2 days ago. Patient states her entire family has Covid. Patient states she is not vaccinated for COVID-19. Patient states her symptoms are worsening. Patient states short of breath better with rest and worse with exertion. Patient states she has not received any treatment for COVID-19. Patient states this is her first visit for COVID-19. I assumed care of the patient from the midlevel since the patient is hypoxic and will eventually require admission. I examined the patient. 08/18/21 21:30 Reevaluation #2: I discussed all results with patient. I discussed plan of care with patient. Patient agrees with plan of care and admission. Patient to be admitted to the hospitalist service. 08/18/21 22:28 - Consultations Consultation #1: Hospitalist consulted for admission. Hospitalist to admit patient. 08/18/21 22:29 ED Medical Decision Making - Lab Data Result diagrams: 08/18/21 20:59 08/18/21 22:24 - Radiology Data Radiology results: report reviewed, image reviewed interpreted by me: Chest x-ray: Bilateral pneumonia, no pneumothorax, no foreign body, no osseous findings, CHEST 2 VIEWS INDICATION / CLINICAL INFORMATION: sob,. COMPARISON: None available. FINDINGS: SUPPORT DEVICES: None. HEART / MEDIASTINUM: No significant abnormality. LUNGS / PLEURA: Patchy peripheral airspace opacities. No pneumothorax. ADDITIONAL FINDINGS: No significant additional findings. IMPRESSION: 1. Patchy peripheral airspace opacities which can be seen with Covid pneumonia. - Medical Decision Making Patient is a 25-year-old female that presents emergency room with complaints of shortness of breath, nausea, vomiting, fever, chills, malaise. Patient tested positive 2 to 3 days ago for COVID-19. Patient is unvaccinated for COVID-19. Patient symptoms worsen. Patient found to be hypoxic in the ER. Patient had labs done which were essentially unremarkable. Patient had a chest x-ray done which showed bilateral pneumonia. Pneumonia consistent with COVID-19. I personally reviewed the chest x-ray. Patient given Decadron, Rocephin and Zithromax. Patient admitted to the hospital service for further evaluation treatment. Patient had a Covid panel ordered. ID was consulted. Critical care time documented due to the multiple reassessments, prolonged time at the bedside, interpretation of diagnostics and labs. - Differential Diagnosis Hypoxia, respiratory failure, COVID-19, pneumonia, fever, SOB Critical Care Time: Yes Critical care time in (mins) excluding proc time.: 35 Critical care attestation.: If time is entered above; I have spent that time in minutes in the direct care of this critically ill patient, excluding procedure time. Critical Care Time: 35 minutes ED Disposition Is pt being admited?: Yes Does the pt Need Aspirin: No Time of Disposition: 22:29
[2021-08-18] MEDS ORDERED: dexAMETHasone 4 MG/ML VIAL IV ONE (21:05)
[2021-08-18 21:09] LABS: Basophils % (Auto) 0.3 % (0.0-1.8); Hematocrit 33.8 % (30.3-42.9); Hemoglobin 11.5 gm/dl (10.1-14.3); Lymphocytes # (Auto) 1.3 K/mm3 (1.2-5.4); Lymphocytes % (Auto) 12.9 % (13.4-35.0); Mean Corpuscular HGB Conc 34 % (30-34); Mean Corpuscular Volume 81 fl (79-97); Monocytes # (Auto) 0.4 K/mm3 (0.0-0.8); Monocytes % (Auto) 4.2 % (0.0-7.3); Platelet Count 320 K/mm3 (140-440); Red Blood Count 4.17 M/mm3 (3.65-5.03); Red Cell Distribution Width 16.5 % (13.2-15.2)
[2021-08-18 21:31] LABS: Alanine Aminotransferase 42 units/L (7-56); Albumin 3.9 g/dL (3.9-5); BUN/Creatinine Ratio 9; Blood Urea Nitrogen 8 mg/dL (7-17); Calcium 8.4 mg/dL (8.4-10.2); Hemolysis Index 29
[2021-08-18] MEDS ORDERED: cefTRIAXone/NS 2 GM/100 ML 2 GM/100 ML BAG IV ONE (21:47)
[2021-08-18] MEDS ORDERED: AZITHROMYCIN/NS 500 MG/250 ML 500 MG/250 ML BAG IV ONE (21:47)
--- NOTE | 2021-08-18 22:10 | XRay Report ---
CHEST 2 VIEWS INDICATION / CLINICAL INFORMATION: sob,. COMPARISON: None available. FINDINGS: SUPPORT DEVICES: None. HEART / MEDIASTINUM: No significant abnormality. LUNGS / PLEURA: Patchy peripheral airspace opacities. No pneumothorax. ADDITIONAL FINDINGS: No significant additional findings. IMPRESSION: 1. Patchy peripheral airspace opacities which can be seen with Covid pneumonia. Signer Name: Vinod Fitch DO Signed: 08/18/2021 10:06 PM Workstation Name: [email or web address]
--- NOTE | 2021-08-18 22:57 | History and Physical Report ---
History of Present Illness Date of examination: 08/18/21 Date of admission: 08/18/21 Chief complaint: Shortness of breath History of present illness: 25-year-old morbid obese female with no significant past medical history was brought to the hospital because of progressive shortness of breath associated with nausea vomiting decreased appetite for the last 4 days. Patient states she tested positive for Covid 3 days ago. She denies any past medical history no known drug allergies and currently takes no meds on a daily basis. Patient states with minimal exertion she gets short of breath. In the emergency room patient chest x-ray shows patchy peripheral airspace opacities which can be seen with Covid pneumonia. We're going to admit the patient with the diagnosis of Covid pneumonia. We'll put the patient on Rocephin and Zithromax and dexamethasone and neb treatment. We consulted infectious disease for evaluation Med rec is done Medications and Allergies Allergies Allergy/AdvReac Type Severity Reaction Status Date / Time No Known Allergies Allergy Verified 08/18/21 20:12 Home Medications Medication Instructions Recorded Confirmed Last Taken Type Insulin NPH Human Isophane 04/22/19 04/19/19 History [Novolin N] Insulin Regular, Human [Novolin R] 04/22/19 04/19/19 History Ferrous Sulfate [Feosol 325 MG tab] 325 mg PO BID #60 tablet 04/27/19 Unknown Rx Ibuprofen [Motrin 800 MG tab] 800 mg PO Q6H PRN #30 tablet 04/27/19 Unknown Rx oxyCODONE /ACETAMINOPHEN [Percocet 1 - 2 tab PO Q4H PRN #25 tablet 04/27/19 Unknown Rx 5/325 mg] Active Meds: Active Medications Acetaminophen (Acetaminophen 325 Mg Tab) 650 mg PO Q4H PRN PRN Reason: Pain MILD(1-3)/Fever >100.5/PICKARD Albuterol (Albuterol 2.5 Mg/3 Ml Nebu) 2.5 mg IH Q4HRT PRN PRN Reason: Shortness Of Breath Albuterol/Ipratropium (Ipratropium/Albuterol Sulfate 3 Ml Ampul.Neb) 1 ampul IH Q6HRT [facility] Dexamethasone (Dexamethasone 4 Mg/Ml Vial) 6 mg IV DAILY [facility] Famotidine (Famotidine 20 Mg Tab) 20 mg PO BID [facility] Ferrous Sulfate (Ferrous Sulfate 325 Mg Tab) 325 mg PO BID [facility] Heparin Sodium (Porcine) (Heparin 5,000 Unit/1 Ml Vial) 5,000 unit SUB-Q Q8HR [facility] Hydromorphone HCl (Hydromorphone 1 Mg/1 Ml Inj) 0.5 mg IV Q3H PRN PRN Reason: Pain , Severe (7-10) Ceftriaxone Sodium (Rocephin/Ns 2 Gm/100 Ml) 2 gm in 100 mls @ 200 mls/hr IV Q24H [facility]; Protocol Azithromycin (Zithromax/Ns) 500 mg in 250 mls @ 250 mls/hr IV Q24H [facility]; Protocol Ondansetron HCl (Ondansetron 4 Mg/2 Ml Inj) 4 mg IV Q8H PRN PRN Reason: Nausea And Vomiting Oxycodone/Acetaminophen (Oxycodone /Acetaminophen 5-325mg Tab) 1 tab PO Q6H PRN PRN Reason: Pain, Moderate (4-6) Sodium Chloride (Sodium Chloride 0.9% 10 Ml Flush Syringe) 10 ml IV BID [facility] Sodium Chloride (Sodium Chloride 0.9% 10 Ml Flush Syringe) 10 ml IV PRN PRN PRN Reason: LINE FLUSH Review of Systems All systems: negative Constitutional: other (Decreased appetite) Cardiovascular: shortness of breath, dyspnea on exertion Respiratory: shortness of breath, dyspnea on exertion Gastrointestinal: nausea, vomiting Exam - Constitutional Vitals: Temp Pulse Resp BP Pulse Ox 101.9 F H 109 H 18 115/65 92 08/18/21 20:09 08/18/21 20:09 08/18/21 20:09 08/18/21 20:09 08/18/21 20:09 General appearance: Present: no acute distress, well-nourished - EENT Eyes: Present: PERRL ENT: hearing intact, clear oral mucosa - Neck Neck: Present: supple, normal ROM - Respiratory Respiratory effort: normal Respiratory: bilateral: diminished - Cardiovascular Heart Sounds: Present: S1 & S2. Absent: rub, click - Extremities Extremities: pulses symmetrical, No edema Peripheral Pulses: within normal limits - Abdominal General gastrointestinal: Present: soft, non-tender, non-distended, normal bowel sounds Female genitourinary: Present: normal - Integumentary Integumentary: Present: clear, warm, dry - Musculoskeletal Musculoskeletal: gait normal, strength equal bilaterally - Psychiatric Psychiatric: appropriate mood/affect, intact judgment & insight - Neurologic Neurologic: CNII-XII intact, moves all extremities Results - Labs CBC & Chem 7: 08/18/21 20:59 08/18/21 20:59 Labs: Laboratory Last Values WBC 10.3 K/mm3 (4.5-11.0) 08/18/21 20:59 RBC 4.17 M/mm3 (3.65-5.03) 08/18/21 20:59 Hgb 11.5 gm/dl (10.1-14.3) 08/18/21 20:59 Hct 33.8 % (30.3-42.9) 08/18/21 20:59 MCV 81 fl (79-97) 08/18/21 20:59 MCH 28 pg (28-32) 08/18/21 20:59 MCHC 34 % (30-34) 08/18/21 20:59 RDW 16.5 % (13.2-15.2) H 08/18/21 20:59 Plt Count 320 K/mm3 (140-440) 08/18/21 20:59 Lymph % (Auto) 12.9 % (13.4-35.0) L 08/18/21 20:59 [place] % (Auto) 4.2 % (0.0-7.3) 08/18/21 20:59 Eos % (Auto) 0.0 % (0.0-4.3) 08/18/21 20:59 Baso % (Auto) 0.3 % (0.0-1.8) 08/18/21 20:59 Lymph # (Auto) 1.3 K/mm3 (1.2-5.4) 08/18/21 20:59 [place] # (Auto) 0.4 K/mm3 (0.0-0.8) 08/18/21 20:59 Eos # (Auto) 0.0 K/mm3 (0.0-0.4) 08/18/21 20:59 Baso # (Auto) 0.0 K/mm3 (0.0-0.1) 08/18/21 20:59 Seg Neutrophils % 82.6 % (40.0-70.0) H 08/18/21 20:59 Seg Neutrophils # 8.5 K/mm3 (1.8-7.7) H 08/18/21 20:59 Sodium 139 mmol/L (137-145) 08/18/21 20:59 Potassium 3.6 mmol/L (3.6-5.0) 08/18/21 20:59 Chloride 100.4 mmol/L (98-107) 08/18/21 20:59 Carbon Dioxide 22 mmol/L (22-30) 08/18/21 20:59 Anion Gap 20 mmol/L 08/18/21 20:59 BUN 8 mg/dL (7-17) 08/18/21 20:59 Creatinine 0.9 mg/dL (0.6-1.2) 08/18/21 20:59 Estimated GFR > 60 ml/min 08/18/21 20:59 BUN/Creatinine Ratio 9 % 08/18/21 20:59 Glucose 120 mg/dL (65-100) H 08/18/21 20:59 Calcium 8.4 mg/dL (8.4-10.2) 08/18/21 20:59 Total Bilirubin 0.50 mg/dL (0.1-1.2) 08/18/21 20:59 AST 35 units/L (5-40) 08/18/21 20:59 ALT 42 units/L (7-56) 08/18/21 20:59 Alkaline Phosphatase 102 units/L (35-129) 08/18/21 20:59 Total Protein 8.6 g/dL (6.3-8.2) H 08/18/21 20:59 Albumin 3.9 g/dL (3.9-5) 08/18/21 20:59 Albumin/Globulin Ratio 0.8 % 08/18/21 20:59 HCG, Quant < 2 mIU/mL (0-4) 08/18/21 20:59 - Imaging and Cardiology Chest x-ray: report reviewed Assessment and Plan VTE prophylaxis?: Chemical Plan of care discussed with patient/family: Yes - Patient Problems (1) Person under investigation for COVID-19 Status: Acute Plan to address problem: Admit the patient to the medical floor. Oxygen via nasal cannula 3 L/min. DuoNeb by nebulizer every 4 hours. Albuterol via nebulizer every 4 hours as needed. Rocephin 2 g IV daily. Zithromax 500 mg IV daily. Dexamethasone 6 mg IV daily. We'll do the blood culture and sputum culture. We've to the Covid PCR and follow Covid inflammatory marker. We'll consult infectious disease evaluation (2) Pneumonia Status: Acute Qualifiers: Pneumonia type: due to unspecified organism Laterality: bilateral Lung location: unspecified part of lung Qualified Code(s): J18.9 - Pneumonia, unspecified organism Plan to address problem: Oxygen via nasal cannula 3 L/min. DuoNeb by nebulizer every 4 hours. Albuterol via nebulizer every 4 hours as needed. Rocephin 2 g IV daily. Zithromax 500 mg IV daily. We'll do the blood culture and sputum culture. Recheck CBC BMP in the morning (3) Nausea & vomiting Status: Acute Plan to address problem: Pepcid 20 mg p.o. twice daily. Zofran 4 mg every 6 hours as needed. We'll monitor the patient closely (4) Shortness of breath Status: Acute Plan to address problem: Oxygen via nasal cannula 3 L/min. DuoNeb by nebulizer every 4 hours. Albuterol via nebulizer every 4 hours as needed. Rocephin 2 g IV daily. Zithromax 500 mg IV daily. Dexamethasone 6 mg IV daily. (5) DVT prophylaxis Status: Acute Plan to address problem: Heparin 5000 units subcu every 8 hours for DVT prophylaxis. Pepcid 20 mg p.o. twice daily for GI prophylaxis. Patient is a full code
[2021-08-19] MEDS ORDERED: SODIUM CHLORIDE 0.9% 1000 ML 1,000 ML ONE (00:46)
[2021-08-19] MEDS ORDERED: SODIUM CHLORIDE 0.9% 1000 ML 1,000 ML IV ONE (00:46)
[2021-08-19] MEDS: IPRATROPIUM/ALBUTEROL SULFATE 3 ML AMPUL.NEB IH SCH ×3 (02:32→23:33)
[2021-08-19] MEDS: HEPARIN 5,000 UNIT/1 ML VIAL SUB-Q SCH ×3 (06:14→21:56)
--- NOTE | 2021-08-19 07:33 | Progress Note ---
Assessment and Plan Assessment and plan: (1) Person under investigation for COVID-19 Status: Acute Plan to address problem: Admit the patient to the medical floor. Oxygen via nasal cannula 3 L/min. DuoNeb by nebulizer every 4 hours. Albuterol via nebulizer every 4 hours as n eeded. Rocephin 2 g IV daily. Zithromax 500 mg IV daily. Dexamethasone 6 mg IV daily. We'll do the blood culture and sputum culture. We've to the Covid PCR and follow Covid inflammatory marker. We'll consult infectious disease evaluation Will await covid test. plan for possible d/c this afternoon if patient remains on room air. (2) Pneumonia Status: Acute Qualifiers: Pneumonia type: due to unspecified organism Laterality: bilateral Lung location: unspecified part of lung Qualified Code(s): J18.9 - Pneumonia, unspecified organism Plan to address problem: Oxygen via nasal cannula 3 L/min. DuoNeb by nebulizer every 4 hours. Albuterol via nebulizer every 4 hours as needed. Rocephin 2 g IV daily. Zithromax 500 mg IV daily. We'll do the blood culture and sputum culture. Recheck CBC BMP in the morning (3) Nausea & vomiting Status: Acute Plan to address problem: Pepcid 20 mg p.o. twice daily. Zofran 4 mg every 6 hours as needed. We'll monitor the patient closely (4) Shortness of breath Status: Acute Plan to address problem: Oxygen via nasal cannula 3 L/min. DuoNeb by nebulizer every 4 hours. Albuterol via nebulizer every 4 hours as needed. Rocephin 2 g IV daily. Zithromax 500 mg IV daily. Dexamethasone 6 mg IV daily. (5) DVT prophylaxis Status: Acute Plan to address problem: Heparin 5000 units subcu every 8 hours for DVT prophylaxis. Pepcid 20 mg p.o. twice daily for GI prophylaxis. Patient is a full code History Interval history: NO acute complaints. Feeling better this morning. Discussed possible d/c this afternoon if patient remains off of O2. Hospitalist Physical - Physical exam Narrative exam: General appearance: Present: no acute distress, well-nourished - EENT Eyes: Present: PERRL ENT: hearing intact, clear oral mucosa - Neck Neck: Present: supple, normal ROM - Respiratory Respiratory effort: normal Respiratory: bilateral: diminished (improved) - Cardiovascular Heart Sounds: Present: S1 & S2. Absent: rub, click - Extremities Extremities: pulses symmetrical, No edema Peripheral Pulses: within normal limits - Abdominal General gastrointestinal: Present: soft, non-tender, non-distended, normal bowel sounds Female genitourinary: Present: normal - Integumentary Integumentary: Present: clear, warm, dry - Musculoskeletal Musculoskeletal: gait normal, strength equal bilaterally - Psychiatric Psychiatric: appropriate mood/affect, intact judgment & insight - Neurologic Neurologic: CNII-XII intact, moves all extremities - Constitutional Vitals: Temp Pulse Resp BP Pulse Ox 98.4 F 107 H 20 113/67 89 08/19/21 04:19 08/19/21 04:19 08/19/21 04:19 08/19/21 04:19 08/19/21 04:19 General appearance: Present: no acute distress, well-nourished Results - Labs CBC & Chem 7: 08/19/21 08:57 08/19/21 08:57 Labs: Laboratory Last Values WBC 10.3 K/mm3 (4.5-11.0) 08/18/21 20:59 RBC 4.17 M/mm3 (3.65-5.03) 08/18/21 20:59 Hgb 11.5 gm/dl (10.1-14.3) 08/18/21 20:59 Hct 33.8 % (30.3-42.9) 08/18/21 20:59 MCV 81 fl (79-97) 08/18/21 20:59 MCH 28 pg (28-32) 08/18/21 20:59 MCHC 34 % (30-34) 08/18/21 20:59 RDW 16.5 % (13.2-15.2) H 08/18/21 20:59 Plt Count 320 K/mm3 (140-440) 08/18/21 20:59 Lymph % (Auto) 12.9 % (13.4-35.0) L 08/18/21 20:59 [place] % (Auto) 4.2 % (0.0-7.3) 08/18/21 20:59 Eos % (Auto) 0.0 % (0.0-4.3) 08/18/21 20:59 Baso % (Auto) 0.3 % (0.0-1.8) 08/18/21 20:59 Lymph # (Auto) 1.3 K/mm3 (1.2-5.4) 08/18/21 20:59 [place] # (Auto) 0.4 K/mm3 (0.0-0.8) 08/18/21 20:59 Eos # (Auto) 0.0 K/mm3 (0.0-0.4) 08/18/21 20:59 Baso # (Auto) 0.0 K/mm3 (0.0-0.1) 08/18/21 20:59 Seg Neutrophils % 82.6 % (40.0-70.0) H 08/18/21 20:59 Seg Neutrophils # 8.5 K/mm3 (1.8-7.7) H 08/18/21 20:59 D-Dimer 411.78 ng/mlDDU (0-234) H 08/18/21 22:24 Sodium 139 mmol/L (137-145) 08/18/21 20:59 Potassium 3.6 mmol/L (3.6-5.0) 08/18/21 20:59 Chloride 100.4 mmol/L (98-107) 08/18/21 20:59 Carbon Dioxide 22 mmol/L (22-30) 08/18/21 20:59 Anion Gap 20 mmol/L 08/18/21 20:59 BUN 8 mg/dL (7-17) 08/18/21 20:59 Creatinine 0.9 mg/dL (0.6-1.2) 08/18/21 20:59 Estimated GFR > 60 ml/min 08/18/21 20:59 BUN/Creatinine Ratio 9 % 08/18/21 20:59 Glucose 110 mg/dL (65-100) H 08/18/21 22:24 Calcium 8.4 mg/dL (8.4-10.2) 08/18/21 20:59 Ferritin 224.6 ng/mL (10.0-200.0) H 08/18/21 22:24 Total Bilirubin 0.50 mg/dL (0.1-1.2) 08/18/21 20:59 AST 35 units/L (5-40) 08/18/21 20:59 ALT 42 units/L (7-56) 08/18/21 20:59 Alkaline Phosphatase 102 units/L (35-129) 08/18/21 20:59 Lactate Dehydrogenase 369 units/L (91-180) H 08/18/21 22:24 C-Reactive Protein 2.00 mg/dL (0.00-1.30) H 08/18/21 22:24 Total Protein 8.6 g/dL (6.3-8.2) H 08/18/21 20:59 Albumin 3.9 g/dL (3.9-5) 08/18/21 20:59 Albumin/Globulin Ratio 0.8 % 08/18/21 20:59 HCG, Quant < 2 mIU/mL (0-4) 08/18/21 20:59 Active Medications - Current Medications Current Medications: Generic Name Dose Route Start Last Admin Trade Name Freq PRN Reason Stop Dose Admin Acetaminophen 650 mg 08/18/21 02:00 Acetaminophen 325 Mg Tab PO Q4H PRN Pain MILD(1-3)/Fever >100.5/PICKARD Albuterol 2.5 mg 08/18/21 00:00 Albuterol 2.5 Mg/3 Ml Nebu IH Q4HRT PRN Shortness Of Breath Albuterol/Ipratropium 1 ampul 08/19/21 02:00 08/19/21 02:32 Ipratropium/Albuterol Sulfate 3 Ml Ampul.Neb IH 1 ampul Q6HRT [facility] Administration Dexamethasone 6 mg 08/19/21 22:00 Dexamethasone 4 Mg/Ml Vial IV DAILY [facility] Famotidine 20 mg 08/19/21 10:00 Famotidine 20 Mg Tab PO BID [facility] Ferrous Sulfate 325 mg 08/19/21 10:00 Ferrous Sulfate 325 Mg Tab PO BID [facility] Heparin Sodium (Porcine) 5,000 unit 08/19/21 06:00 08/19/21 06:14 Heparin 5,000 Unit/1 Ml Vial SUB-Q 5,000 unit Q8HR [facility] Administration Hydromorphone HCl 0.5 mg 08/18/21 00:00 Hydromorphone 1 Mg/1 Ml Inj IV Q3H PRN Pain , Severe (7-10) Azithromycin 500 mg in 250 mls @ 250 mls/hr 08/19/21 22:00 Zithromax/Ns IV Q24H [facility] Protocol Ceftriaxone Sodium 2 gm in 100 mls @ 200 mls/hr 08/19/21 22:00 Rocephin/Ns 2 Gm/100 Ml IV Q24H [facility] Protocol Ondansetron HCl 4 mg 08/18/21 00:00 Ondansetron 4 Mg/2 Ml Inj IV Q8H PRN Nausea And Vomiting Oxycodone/Acetaminophen 1 tab 08/18/21 00:00 Oxycodone /Acetaminophen 5-325mg Tab PO Q6H PRN Pain, Moderate (4-6) Sodium Chloride 10 ml 08/19/21 10:00 Sodium Chloride 0.9% 10 Ml Flush Syringe IV BID [facility] Sodium Chloride 10 ml 08/18/21 00:00 Sodium Chloride 0.9% 10 Ml Flush Syringe IV PRN PRN LINE FLUSH
[2021-08-19] MEDS: dexAMETHasone 4 MG/ML VIAL IV SCH (09:26)
[2021-08-19] MEDS: FAMOTIDINE 20 MG TAB PO SCH ×2 (09:26→21:55)
[2021-08-19] MEDS: FERROUS SULFATE 325 MG TAB PO SCH ×2 (09:26→21:56)
[2021-08-19 09:36] LABS: Basophils % (Auto) 0.3 % (0.0-1.8); Hematocrit 32.5 % (30.3-42.9); Lymphocytes # (Auto) 1.3 K/mm3 (1.2-5.4); Lymphocytes % (Auto) 18.3 % (13.4-35.0); Mean Corpuscular HGB Conc 34 % (30-34); Mean Corpuscular Volume 81 fl (79-97); Monocytes # (Auto) 0.5 K/mm3 (0.0-0.8); Monocytes % (Auto) 6.8 % (0.0-7.3); Platelet Count 334 K/mm3 (140-440); Red Blood Count 4.01 M/mm3 (3.65-5.03); Red Cell Distribution Width 17.1 % (13.2-15.2)
[2021-08-19 09:50] LABS: Blood Urea Nitrogen 8 mg/dL (7-17); Hemolysis Index 11
[2021-08-19 09:54] LABS: BUN/Creatinine Ratio 13
[2021-08-19] MEDS ORDERED: guaiFENesin/CODEINE 100-10MG ORAL LIQD 5 ML PO PRN (13:02)
--- NOTE | 2021-08-19 13:33 | Consultation ---
History of Present Illness - Reason for Consult Consult date: 08/19/21 COVID Requesting physician: HIEU BIRCH - History of Present Illness The patient is a 25-year-old female with morbid obesity admitted to the hospital with COVID-19, chest x-ray findings of bilateral pneumonia and dyspnea on exertion with hypoxia. Febrile on admission. Review of Systems: reviewed in the chart, unable to obtain, minimize risk of transmission Medications and Allergies Allergies Allergy/AdvReac Type Severity Reaction Status Date / Time No Known Allergies Allergy Verified 08/18/21 20:12 Home Medications Medication Instructions Recorded Confirmed Last Taken Type Insulin NPH Human Isophane 04/22/19 04/19/19 History [Novolin N] Insulin Regular, Human [Novolin R] 04/22/19 04/19/19 History Ferrous Sulfate [Feosol 325 MG tab] 325 mg PO BID #60 tablet 04/27/19 08/19/21 Unknown Rx Ibuprofen [Motrin 800 MG tab] 800 mg PO Q6H PRN #30 tablet 04/27/19 08/19/21 Unknown Rx oxyCODONE /ACETAMINOPHEN [Percocet 1 - 2 tab PO Q4H PRN #25 tablet 04/27/19 08/19/21 Unknown Rx 5/325 mg] Active Meds: Active Medications Acetaminophen (Acetaminophen 325 Mg Tab) 650 mg PO Q4H PRN PRN Reason: Pain MILD(1-3)/Fever >100.5/PICKARD Albuterol (Albuterol 2.5 Mg/3 Ml Nebu) 2.5 mg IH Q4HRT PRN PRN Reason: Shortness Of Breath Albuterol/Ipratropium (Ipratropium/Albuterol Sulfate 3 Ml Ampul.Neb) 1 ampul IH Q6HRT [facility] Last Admin: 08/19/21 02:32 Dose: 1 ampul Documented by: Dexamethasone (Dexamethasone 4 Mg/Ml Vial) 6 mg IV DAILY [facility] Stop: 08/27/21 10:01 Last Admin: 08/19/21 09:26 Dose: 6 mg Documented by: Famotidine (Famotidine 20 Mg Tab) 20 mg PO BID [facility] Last Admin: 08/19/21 09:26 Dose: 20 mg Documented by: Ferrous Sulfate (Ferrous Sulfate 325 Mg Tab) 325 mg PO BID [facility] Last Admin: 08/19/21 09:26 Dose: 325 mg Documented by: Heparin Sodium (Porcine) (Heparin 5,000 Unit/1 Ml Vial) 5,000 unit SUB-Q Q8HR [facility] Last Admin: 08/19/21 06:14 Dose: 5,000 unit Documented by: Hydromorphone HCl (Hydromorphone 1 Mg/1 Ml Inj) 0.5 mg IV Q3H PRN PRN Reason: Pain , Severe (7-10) Azithromycin (Zithromax/Ns) 500 mg in 250 mls @ 250 mls/hr IV Q24H [facility]; Protocol Ceftriaxone Sodium (Rocephin/Ns 2 Gm/100 Ml) 2 gm in 100 mls @ 200 mls/hr IV Q24H [facility]; Protocol Ondansetron HCl (Ondansetron 4 Mg/2 Ml Inj) 4 mg IV Q8H PRN PRN Reason: Nausea And Vomiting Oxycodone/Acetaminophen (Oxycodone /Acetaminophen 5-325mg Tab) 1 tab PO Q6H PRN PRN Reason: Pain, Moderate (4-6) Pseudoephedrine/Acetam/Chlorphenir (Guaifenesin/Codeine 100-10mg Oral Liqd 5 Ml) 15 ml PO Q4H PRN PRN Reason: Cough Sodium Chloride (Sodium Chloride 0.9% 10 Ml Flush Syringe) 10 ml IV BID [facility] Last Admin: 08/19/21 09:27 Dose: 10 ml Documented by: Sodium Chloride (Sodium Chloride 0.9% 10 Ml Flush Syringe) 10 ml IV PRN PRN PRN Reason: LINE FLUSH Physical Examination - Physical Exam Narrative exam: Physical Exam (reviewed in chart to minimize risk of transmission) Constitutional: deferred Head, Ears, Nose: deferred Eyes: deferred Neck: deferred Oral: deferred Cardiovascular: deferred Respiratory: deferred GI: deferred Musculoskeletal: deferred Skin: deferred Hem/Lymphatic: deferred Psych: deferred Neurological: deferred - Constitutional Vitals: Vital Signs Temp Pulse Resp BP Pulse Ox 98.4 F 107 H 20 113/67 92 08/19/21 04:19 08/19/21 04:19 08/19/21 04:19 08/19/21 04:08/19/21 10:00 Temperature -Last 24 Hours Temperature 98.4 F Temperature 101.9 F Results - Labs CBC & Chem 7: 08/19/21 08:57 08/19/21 08:57 Labs: Abnormal lab results 08/18/21 08/18/21 08/18/21 Range/Units 20:59 20:59 22:24 MCH (28-32) pg RDW 16.5 H (13.2-15.2) % Lymph % (Auto) 12.9 L (13.4-35.0) % Seg Neutrophils % 82.6 H (40.0-70.0) % Seg Neutrophils # 8.5 H (1.8-7.7) K/mm3 D-Dimer 411.78 H (0-234) ng/mlDDU Glucose 120 H (65-100) mg/dL Calcium (8.4-10.2) mg/dL Ferritin (10.0-200.0) ng/mL Lactate Dehydrogenase (91-180) units/L C-Reactive Protein (0.00-1.30) mg/dL Total Protein 8.6 H (6.3-8.2) g/dL 08/18/21 08/18/21 08/19/21 Range/Units 22:24 22:24 08:57 MCH 27 L (28-32) pg RDW 17.1 H (13.2-15.2) % Lymph % (Auto) (13.4-35.0) % Seg Neutrophils % 74.6 H (40.0-70.0) % Seg Neutrophils # (1.8-7.7) K/mm3 D-Dimer (0-234) ng/mlDDU Glucose 110 H (65-100) mg/dL Calcium (8.4-10.2) mg/dL Ferritin 224.6 H (10.0-200.0) ng/mL Lactate Dehydrogenase 369 H (91-180) units/L C-Reactive Protein 2.00 H (0.00-1.30) mg/dL Total Protein (6.3-8.2) g/dL 08/19/21 Range/Units 08:57 MCH (28-32) pg RDW (13.2-15.2) % Lymph % (Auto) (13.4-35.0) % Seg Neutrophils % (40.0-70.0) % Seg Neutrophils # (1.8-7.7) K/mm3 D-Dimer (0-234) ng/mlDDU Glucose 124 H (65-100) mg/dL Calcium 8.0 L (8.4-10.2) mg/dL Ferritin (10.0-200.0) ng/mL Lactate Dehydrogenase (91-180) units/L C-Reactive Protein (0.00-1.30) mg/dL Total Protein (6.3-8.2) g/dL - Imaging and Cardiology Chest x-ray: report reviewed, image reviewed (patchy pna) Assessment and Plan Cultures: SARS CoV2 PCR: Pending, positive as outpatient A/P: with: #Bilateral pneumonia: Likely secondary to COVID-19, tested positive as outpatient. Labs showed normal WBC, D-dimer 411, CRP 2.0, ferritin 224, LDH 369. #Acute hypoxic respiratory failure: on NC. #Morbid obesity Recs: IV/PO Dexamethasone x 10 days IV remdesivir x 5 days ordered prophylactic anticoagulation based on d-dimer per hospital protocol if procalcitonin is low, abx not needed trend ferritin, d-dimer, CRP every 2-3 days ambulatory sats prior to discharge Debra Lestre MD, FACP [facility] ([facility]) O: [phone] F: [phone]
[2021-08-19 16:25] LABS: Alanine Aminotransferase 33 units/L (7-56); Albumin 3.6 g/dL (3.9-5); Blood Urea Nitrogen 7 mg/dL (7-17); Calcium 8.3 mg/dL (8.4-10.2); Hemolysis Index 57
[2021-08-19 16:26] LABS: BUN/Creatinine Ratio 12
[2021-08-19] MEDS ORDERED: REMDESIVIR 200 MG in SODIUM CHLORIDE 0.9% 250ML 250 ML IV ONE (17:00)
[2021-08-19] MEDS: SODIUM CHLORIDE 0.9% 50 ML IVPB IV SCH (18:11)
[2021-08-19] MEDS ORDERED: AZITHROMYCIN/NS 500 MG/250 ML 500 MG/250 ML BAG IV SCH (22:00)
[2021-08-19] MEDS ORDERED: cefTRIAXone/NS 2 GM/100 ML 2 GM/100 ML BAG IV SCH (22:00)
[2021-08-20] MEDS: HEPARIN 5,000 UNIT/1 ML VIAL SUB-Q SCH ×3 (06:46→22:29)
--- NOTE | 2021-08-20 08:45 | Electrocardiograph Report ---
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
[2021-08-20 09:09] LABS: Alanine Aminotransferase 31 units/L (7-56); Albumin 3.4 g/dL (3.9-5); Blood Urea Nitrogen 9 mg/dL (7-17); Calcium 8.1 mg/dL (8.4-10.2); Hemolysis Index 6
[2021-08-20 09:10] LABS: BUN/Creatinine Ratio 15
[2021-08-20] MEDS: IPRATROPIUM/ALBUTEROL SULFATE 3 ML AMPUL.NEB IH SCH ×4 (09:28→23:31)
[2021-08-20] MEDS: FAMOTIDINE 20 MG TAB PO SCH ×2 (09:53→22:29)
[2021-08-20] MEDS: FERROUS SULFATE 325 MG TAB PO SCH ×2 (09:53→22:29)
[2021-08-20] MEDS: dexAMETHasone 4 MG/ML VIAL IV SCH (09:53)
--- NOTE | 2021-08-20 12:16 | Progress Note ---
Assessment and Plan Cultures: SARS CoV2 PCR: positive A/P: 25/F with: #Bilateral pneumonia secondary to COVID-19, tested positive as outpatient. Labs showed normal WBC, D-dimer 411, CRP 2.0, ferritin 224, LDH 369. #Acute hypoxic respiratory failure: on NC. #Morbid obesity Recs: continue IV/PO Dexamethasone x 10 days continue IV remdesivir x 5 days, monitor LFTs prophylactic anticoagulation based on d-dimer per hospital protocol abx discontinued trend ferritin, d-dimer, CRP every 2-3 days oxygen weaning and ambulatory sats prior to discharge Will sign off. Please reconsult as needed. Debra Lester MD, FACP [facility] ([facility]) O: [phone] F: [phone] Subjective Date of service: 08/20/21 Interval history: Afebrile. COVID-19 positive. Remains on oxygen by nasal cannula. Objective - Exam Narrative Exam: Physical Exam (reviewed in chart to minimize risk of transmission) Constitutional: deferred Head, Ears, Nose: deferred Eyes: deferred Neck: deferred Oral: deferred Cardiovascular: deferred Respiratory: deferred GI: deferred Musculoskeletal: deferred Skin: deferred Hem/Lymphatic: deferred Psych: deferred Neurological: deferred - Constitutional Vitals: Vital Signs Temp Pulse Resp BP Pulse Ox 98.7 F 64 20 102/59 91 08/20/21 05:38 08/20/21 05:38 08/20/21 05:38 08/20/21 05:38 08/20/21 10:30 Temperature -Last 24 Hours Temperature 98.7 F Temperature 98.9 F - Labs CBC & Chem 7: 08/19/21 08:57 08/20/21 08:15 Labs: Abnormal lab results 08/19/21 08/19/21 08/20/21 Range/Units 15:15 Unknown 08:15 Potassium 3.3 L (3.6-5.0) mmol/L Carbon Dioxide 20 L (22-30) mmol/L Glucose 139 H (65-100) mg/dL Calcium 8.3 L 8.1 L (8.4-10.2) mg/dL Albumin 3.6 L 3.4 L (3.9-5) g/dL Coronavirus (PCR) Positive A (Negative)
[2021-08-20] MEDS: SODIUM CHLORIDE 0.9% 50 ML IVPB IV SCH (22:33)
[2021-08-20] MEDS: REMDESIVIR 100 MG in SODIUM CHLORIDE 0.9% 250ML 250 ML IV SCH (22:33)
[2021-08-21] MEDS: IPRATROPIUM/ALBUTEROL SULFATE 3 ML AMPUL.NEB IH SCH ×4 (03:29→20:33)
[2021-08-21] MEDS: HEPARIN 5,000 UNIT/1 ML VIAL SUB-Q SCH ×3 (06:10→21:13)
[2021-08-21 06:52] LABS: Alanine Aminotransferase 33 units/L (7-56); Albumin 3.6 g/dL (3.9-5); Blood Urea Nitrogen 11 mg/dL (7-17); Calcium 8.4 mg/dL (8.4-10.2); Hemolysis Index 9
[2021-08-21 07:10] LABS: BUN/Creatinine Ratio 16
--- NOTE | 2021-08-21 07:27 | Progress Note ---
Assessment and Plan Assessment and plan: (1) Acute hypoxic respiratory distress Status: Acute Plan to address problem: Admit the patient to the medical floor. Oxygen via nasal cannula 2 L/min. DuoNeb by nebulizer every 4 hours. Albuterol via nebulizer every 4 hours as needed. Rocephin 2 g IV daily. Zithromax 500 mg IV daily. Dexamethasone 6 mg IV daily. We'll do the blood culture and sputum culture. We'll consult infectious disease evaluation Desat to 86% on walk test. advised patient to self prone. Remains on NC at 2l/min (2) COVID 19 pneumonia Status: Acute Qualifiers: Pneumonia type: due to unspecified organism Laterality: bilateral Lung location: unspecified part of lung Qualified Code(s): J18.9 - Pneumonia, unspecified organism Plan to address problem: Oxygen via nasal cannula 3 L/min. DuoNeb by nebulizer every 4 hours. Albuterol via nebulizer every 4 hours as needed. Rocephin 2 g IV daily. Zithromax 500 mg IV daily. We'll do the blood culture and sputum culture. Recheck CBC BMP in the morning follow Covid inflammatory marker. Continue supportive care Follow ID recs (3) Nausea & vomiting Status: Acute Plan to address problem: Pepcid 20 mg p.o. twice daily. Zofran 4 mg every 6 hours as needed. We'll monitor the patient closely (4) Shortness of breath Status: Acute Plan to address problem: Oxygen via nasal cannula 3 L/min. DuoNeb by nebulizer every 4 hours. Albuterol via nebulizer every 4 hours as needed. Rocephin 2 g IV daily. Zithromax 500 mg IV daily. Dexamethasone 6 mg IV daily. (5) DVT prophylaxis Status: Acute Plan to address problem: Heparin 5000 units subcu every 8 hours for DVT prophylaxis. Pepcid 20 mg p.o. twice daily for GI prophylaxis. Patient is a full code History Interval history: NO acute complaints. Feeling better this morning. Discussed possible d/c this afternoon if patient remains off of O2. Hospitalist Physical - Physical exam Narrative exam: General appearance: Present: no acute distress, well-nourished - EENT Eyes: Present: PERRL ENT: hearing intact, clear oral mucosa - Neck Neck: Present: supple, normal ROM - Respiratory Respiratory effort: normal Respiratory: bilateral: diminished (improved) - Cardiovascular Heart Sounds: Present: S1 & S2. Absent: rub, click - Extremities Extremities: pulses symmetrical, No edema Peripheral Pulses: within normal limits - Abdominal General gastrointestinal: Present: soft, non-tender, non-distended, normal bowel sounds Female genitourinary: Present: normal - Integumentary Integumentary: Present: clear, warm, dry - Musculoskeletal Musculoskeletal: gait normal, strength equal bilaterally - Psychiatric Psychiatric: appropriate mood/affect, intact judgment & insight - Neurologic Neurologic: CNII-XII intact, moves all extremities - Constitutional Vitals: Temp Pulse Resp BP Pulse Ox 98.2 F 61 18 93/54 91 08/21/21 05:11 08/21/21 05:11 08/21/21 05:11 08/21/21 05:11 08/21/21 05:11 General appearance: Present: no acute distress, well-nourished Results - Labs CBC & Chem 7: 08/19/21 08:57 08/21/21 05:39 Labs: Laboratory Last Values WBC 6.9 K/mm3 (4.5-11.0) 08/19/21 08:57 RBC 4.01 M/mm3 (3.65-5.03) 08/19/21 08:57 Hgb 11.0 gm/dl (10.1-14.3) 08/19/21 08:57 Hct 32.5 % (30.3-42.9) 08/19/21 08:57 MCV 81 fl (79-97) 08/19/21 08:57 MCH 27 pg (28-32) L 08/19/21 08:57 MCHC 34 % (30-34) 08/19/21 08:57 RDW 17.1 % (13.2-15.2) H 08/19/21 08:57 Plt Count 334 K/mm3 (140-440) 08/19/21 08:57 Lymph % (Auto) 18.3 % (13.4-35.0) 08/19/21 08:57 [place] % (Auto) 6.8 % (0.0-7.3) 08/19/21 08:57 Eos % (Auto) 0.0 % (0.0-4.3) 08/19/21 08:57 Baso % (Auto) 0.3 % (0.0-1.8) 08/19/21 08:57 Lymph # (Auto) 1.3 K/mm3 (1.2-5.4) 08/19/21 08:57 [place] # (Auto) 0.5 K/mm3 (0.0-0.8) 08/19/21 08:57 Eos # (Auto) 0.0 K/mm3 (0.0-0.4) 08/19/21 08:57 Baso # (Auto) 0.0 K/mm3 (0.0-0.1) 08/19/21 08:57 Seg Neutrophils % 74.6 % (40.0-70.0) H 08/19/21 08:57 Seg Neutrophils # 5.2 K/mm3 (1.8-7.7) 08/19/21 08:57 D-Dimer 411.78 ng/mlDDU (0-234) H 08/18/21 22:24 Sodium 143 mmol/L (137-145) 08/21/21 05:39 Potassium 3.4 mmol/L (3.6-5.0) L 08/21/21 05:39 Chloride 105.3 mmol/L (98-107) 08/21/21 05:39 Carbon Dioxide 26 mmol/L (22-30) 08/21/21 05:39 Anion Gap 15 mmol/L 08/21/21 05:39 BUN 11 mg/dL (7-17) 08/21/21 05:39 Creatinine 0.7 mg/dL (0.6-1.2) 08/21/21 05:39 Estimated GFR > 60 ml/min 08/21/21 05:39 BUN/Creatinine Ratio 16 % 08/21/21 05:39 Glucose 96 mg/dL (65-100) 08/21/21 05:39 Calcium 8.4 mg/dL (8.4-10.2) 08/21/21 05:39 Ferritin 224.6 ng/mL (10.0-200.0) H 08/18/21 22:24 Total Bilirubin 0.30 mg/dL (0.1-1.2) 08/21/21 05:39 AST 22 units/L (5-40) 08/21/21 05:39 ALT 33 units/L (7-56) 08/21/21 05:39 Alkaline Phosphatase 96 units/L (35-129) 08/21/21 05:39 Lactate Dehydrogenase 369 units/L (91-180) H 08/18/21 22:24 C-Reactive Protein 2.00 mg/dL (0.00-1.30) H 08/18/21 22:24 Total Protein 8.1 g/dL (6.3-8.2) 08/21/21 05:39 Albumin 3.6 g/dL (3.9-5) L 08/21/21 05:39 Albumin/Globulin Ratio 0.8 % 08/21/21 05:39 Procalcitonin < 0.05 ng/mL (<0.15) 08/18/21 22:24 HCG, Quant < 2 mIU/mL (0-4) 08/18/21 20:59 Coronavirus (PCR) Positive (Negative) A 08/19/21 Unknown Salas/IV: Voiding Method Toilet Active Medications - Current Medications Current Medications: Generic Name Dose Route Start Last Admin Trade Name Freq PRN Reason Stop Dose Admin Acetaminophen 650 mg 08/18/21 02:00 Acetaminophen 325 Mg Tab PO Q4H PRN Pain MILD(1-3)/Fever >100.5/PICKARD Albuterol 2.5 mg 08/18/21 00:00 Albuterol 2.5 Mg/3 Ml Nebu IH Q4HRT PRN Shortness Of Breath Albuterol/Ipratropium 1 ampul 08/19/21 02:00 08/21/21 03:29 Ipratropium/Albuterol Sulfate 3 Ml Ampul.Neb IH Not Given Q6HRT ROCIO Dexamethasone 6 mg 08/19/21 10:00 08/20/21 09:53 Dexamethasone 4 Mg/Ml Vial IV 08/27/21 10:01 6 mg DAILY ROCIO Administration Famotidine 20 mg 08/19/21 10:00 08/20/21 22:29 Famotidine 20 Mg Tab PO 20 mg BID ROCIO Administration Ferrous Sulfate 325 mg 08/19/21 10:00 08/20/21 22:29 Ferrous Sulfate 325 Mg Tab PO 325 mg BID ROCIO Administration Heparin Sodium (Porcine) 5,000 unit 08/19/21 06:00 08/21/21 06:10 Heparin 5,000 Unit/1 Ml Vial SUB-Q 5,000 unit Q8HR ROCIO Administration Hydromorphone HCl 0.5 mg 08/18/21 00:00 Hydromorphone 1 Mg/1 Ml Inj IV Q3H PRN Pain , Severe (7-10) REMDESIVIR 100 mg/ Sodium 250 mls @ 500 mls/hr 08/20/21 21:00 08/20/21 22:33 Chloride IV 08/23/21 21:29 500 mls/hr Q24HR@2100 ROCIO Administration Ondansetron HCl 4 mg 08/18/21 00:00 Ondansetron 4 Mg/2 Ml Inj IV Q8H PRN Nausea And Vomiting Oxycodone/Acetaminophen 1 tab 08/18/21 00:00 Oxycodone /Acetaminophen 5-325mg Tab PO Q6H PRN Pain, Moderate (4-6) Pseudoephedrine/Acetam/Chlorphenir 15 ml 08/19/21 13:02 Guaifenesin/Codeine 100-10mg Oral Liqd 5 Ml PO Q4H PRN Cough Sodium Chloride 10 ml 08/19/21 10:00 08/20/21 23:30 Sodium Chloride 0.9% 10 Ml Flush Syringe IV 10 ml BID ROCIO Administration Sodium Chloride 10 ml 08/18/21 00:00 Sodium Chloride 0.9% 10 Ml Flush Syringe IV PRN PRN LINE FLUSH Sodium Chloride 50 ml 08/19/21 17:00 08/20/21 22:33 Sodium Chloride 0.9% 50 Ml Ivpb IV 08/23/21 21:01 50 ml Q24HR@2100 ROCIO Administration
--- NOTE | 2021-08-21 07:32 | Progress Note ---
Assessment and Plan Assessment and plan: 08/21: on room air on encounter and significantly improved. will re-assess for home oxygen and possible d/c this afternoon. (1) Acute hypoxic respiratory distress Status: Acute Plan to address problem: Admit the patient to the medical floor. Oxygen via nasal cannula 2 L/min. DuoNeb by nebulizer every 4 hours. Albuterol via nebulizer every 4 hours as needed. Rocephin 2 g IV daily. Zithromax 500 mg IV daily. Dexamethasone 6 mg IV daily. We'll do the blood culture and sputum culture. We'll consult infectious disease evaluation Desat to 86% on walk test. advised patient to self prone. Remains on NC at 2l/min (2) COVID 19 pneumonia Status: Acute Qualifiers: Pneumonia type: due to unspecified organism Laterality: bilateral Lung location: unspecified part of lung Qualified Code(s): J18.9 - Pneumonia, unspecified organism Plan to address problem: Oxygen via nasal cannula 3 L/min. DuoNeb by nebulizer every 4 hours. Albuterol via nebulizer every 4 hours as needed. Rocephin 2 g IV daily. Zithromax 500 mg IV daily. We'll do the blood culture and sputum culture. Recheck CBC BMP in the morning follow Covid inflammatory marker. Continue supportive care Follow ID recs (3) Nausea & vomiting Status: Acute Plan to address problem: Pepcid 20 mg p.o. twice daily. Zofran 4 mg every 6 hours as needed. We'll monitor the patient closely (4) Shortness of breath Status: Acute Plan to address problem: Oxygen via nasal cannula 3 L/min. DuoNeb by nebulizer every 4 hours. Albuterol via nebulizer every 4 hours as needed. Rocephin 2 g IV daily. Zithromax 500 mg IV daily. Dexamethasone 6 mg IV daily. (5) DVT prophylaxis Status: Acute Plan to address problem: Heparin 5000 units subcu every 8 hours for DVT prophylaxis. Pepcid 20 mg p.o. twice daily for GI prophylaxis. Patient is a full code History Interval history: NO acute overnight events. No acute complaints. Hospitalist Physical - Physical exam Narrative exam: General appearance: Present: no acute distress, well-nourished, on room air - EENT Eyes: Present: PERRL ENT: hearing intact, clear oral mucosa - Neck Neck: Present: supple, normal ROM - Respiratory Respiratory effort: normal Respiratory: bilateral: diminished (improved) - Cardiovascular Heart Sounds: Present: S1 & S2. Absent: rub, click - Extremities Extremities: pulses symmetrical, No edema Peripheral Pulses: within normal limits - Abdominal General gastrointestinal: Present: soft, non-tender, non-distended, normal bowel sounds Female genitourinary: Present: normal - Integumentary Integumentary: Present: clear, warm, dry - Musculoskeletal Musculoskeletal: gait normal, strength equal bilaterally - Psychiatric Psychiatric: appropriate mood/affect, intact judgment & insight - Neurologic Neurologic: CNII-XII intact, moves all extremities - Constitutional Vitals: Temp Pulse Resp BP Pulse Ox 98.2 F 61 18 93/54 91 08/21/21 05:11 08/21/21 05:11 08/21/21 05:11 08/21/21 05:11 08/21/21 05:11 General appearance: Present: no acute distress, well-nourished Results - Labs CBC & Chem 7: 08/19/21 08:57 08/21/21 05:39 Labs: Laboratory Last Values WBC 6.9 K/mm3 (4.5-11.0) 08/19/21 08:57 RBC 4.01 M/mm3 (3.65-5.03) 08/19/21 08:57 Hgb 11.0 gm/dl (10.1-14.3) 08/19/21 08:57 Hct 32.5 % (30.3-42.9) 08/19/21 08:57 MCV 81 fl (79-97) 08/19/21 08:57 MCH 27 pg (28-32) L 08/19/21 08:57 MCHC 34 % (30-34) 08/19/21 08:57 RDW 17.1 % (13.2-15.2) H 08/19/21 08:57 Plt Count 334 K/mm3 (140-440) 08/19/21 08:57 Lymph % (Auto) 18.3 % (13.4-35.0) 08/19/21 08:57 [place] % (Auto) 6.8 % (0.0-7.3) 08/19/21 08:57 Eos % (Auto) 0.0 % (0.0-4.3) 08/19/21 08:57 Baso % (Auto) 0.3 % (0.0-1.8) 08/19/21 08:57 Lymph # (Auto) 1.3 K/mm3 (1.2-5.4) 08/19/21 08:57 [place] # (Auto) 0.5 K/mm3 (0.0-0.8) 08/19/21 08:57 Eos # (Auto) 0.0 K/mm3 (0.0-0.4) 08/19/21 08:57 Baso # (Auto) 0.0 K/mm3 (0.0-0.1) 08/19/21 08:57 Seg Neutrophils % 74.6 % (40.0-70.0) H 08/19/21 08:57 Seg Neutrophils # 5.2 K/mm3 (1.8-7.7) 08/19/21 08:57 D-Dimer 411.78 ng/mlDDU (0-234) H 08/18/21 22:24 Sodium 143 mmol/L (137-145) 08/21/21 05:39 Potassium 3.4 mmol/L (3.6-5.0) L 08/21/21 05:39 Chloride 105.3 mmol/L (98-107) 08/21/21 05:39 Carbon Dioxide 26 mmol/L (22-30) 08/21/21 05:39 Anion Gap 15 mmol/L 08/21/21 05:39 BUN 11 mg/dL (7-17) 08/21/21 05:39 Creatinine 0.7 mg/dL (0.6-1.2) 08/21/21 05:39 Estimated GFR > 60 ml/min 08/21/21 05:39 BUN/Creatinine Ratio 16 % 08/21/21 05:39 Glucose 96 mg/dL (65-100) 08/21/21 05:39 Calcium 8.4 mg/dL (8.4-10.2) 08/21/21 05:39 Ferritin 224.6 ng/mL (10.0-200.0) H 08/18/21 22:24 Total Bilirubin 0.30 mg/dL (0.1-1.2) 08/21/21 05:39 AST 22 units/L (5-40) 08/21/21 05:39 ALT 33 units/L (7-56) 08/21/21 05:39 Alkaline Phosphatase 96 units/L (35-129) 08/21/21 05:39 Lactate Dehydrogenase 369 units/L (91-180) H 08/18/21 22:24 C-Reactive Protein 2.00 mg/dL (0.00-1.30) H 08/18/21 22:24 Total Protein 8.1 g/dL (6.3-8.2) 08/21/21 05:39 Albumin 3.6 g/dL (3.9-5) L 08/21/21 05:39 Albumin/Globulin Ratio 0.8 % 08/21/21 05:39 Procalcitonin < 0.05 ng/mL (<0.15) 08/18/21 22:24 HCG, Quant < 2 mIU/mL (0-4) 08/18/21 20:59 Coronavirus (PCR) Positive (Negative) A 08/19/21 Unknown Salas/IV: Voiding Method Toilet Active Medications - Current Medications Current Medications: Generic Name Dose Route Start Last Admin Trade Name Freq PRN Reason Stop Dose Admin Acetaminophen 650 mg 08/18/21 02:00 Acetaminophen 325 Mg Tab PO Q4H PRN Pain MILD(1-3)/Fever >100.5/PICKARD Albuterol 2.5 mg 08/18/21 00:00 Albuterol 2.5 Mg/3 Ml Nebu IH Q4HRT PRN Shortness Of Breath Albuterol/Ipratropium 1 ampul 08/19/21 02:00 08/21/21 03:29 Ipratropium/Albuterol Sulfate 3 Ml Ampul.Neb IH Not Given Q6HRT ROCIO Dexamethasone 6 mg 08/19/21 10:00 08/20/21 09:53 Dexamethasone 4 Mg/Ml Vial IV 08/27/21 10:01 6 mg DAILY ROCIO Administration Famotidine 20 mg 08/19/21 10:00 08/20/21 22:29 Famotidine 20 Mg Tab PO 20 mg BID ROCIO Administration Ferrous Sulfate 325 mg 08/19/21 10:00 08/20/21 22:29 Ferrous Sulfate 325 Mg Tab PO 325 mg BID ROCIO Administration Heparin Sodium (Porcine) 5,000 unit 08/19/21 06:00 08/21/21 06:10 Heparin 5,000 Unit/1 Ml Vial SUB-Q 5,000 unit Q8HR ROCIO Administration Hydromorphone HCl 0.5 mg 08/18/21 00:00 Hydromorphone 1 Mg/1 Ml Inj IV Q3H PRN Pain , Severe (7-10) REMDESIVIR 100 mg/ Sodium 250 mls @ 500 mls/hr 08/20/21 21:00 08/20/21 22:33 Chloride IV 08/23/21 21:29 500 mls/hr Q24HR@2100 ROCIO Administration Ondansetron HCl 4 mg 08/18/21 00:00 Ondansetron 4 Mg/2 Ml Inj IV Q8H PRN Nausea And Vomiting Oxycodone/Acetaminophen 1 tab 08/18/21 00:00 Oxycodone /Acetaminophen 5-325mg Tab PO Q6H PRN Pain, Moderate (4-6) Pseudoephedrine/Acetam/Chlorphenir 15 ml 08/19/21 13:02 Guaifenesin/Codeine 100-10mg Oral Liqd 5 Ml PO Q4H PRN Cough Sodium Chloride 10 ml 08/19/21 10:00 08/20/21 23:30 Sodium Chloride 0.9% 10 Ml Flush Syringe IV 10 ml BID ROCIO Administration Sodium Chloride 10 ml 08/18/21 00:00 Sodium Chloride 0.9% 10 Ml Flush Syringe IV PRN PRN LINE FLUSH Sodium Chloride 50 ml 08/19/21 17:00 08/20/21 22:33 Sodium Chloride 0.9% 50 Ml Ivpb IV 08/23/21 21:01 50 ml Q24HR@2100 ROCIO Administration
[2021-08-21] MEDS: FERROUS SULFATE 325 MG TAB PO SCH ×2 (09:38→21:13)
[2021-08-21] MEDS: FAMOTIDINE 20 MG TAB PO SCH ×2 (09:40→21:13)
[2021-08-21] MEDS: dexAMETHasone 4 MG/ML VIAL IV SCH (09:40)
--- NOTE | 2021-08-21 12:21 | Electrocardiograph Report ---
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
[2021-08-21] MEDS: REMDESIVIR 100 MG in SODIUM CHLORIDE 0.9% 250ML 250 ML IV SCH (21:12)
[2021-08-21] MEDS: SODIUM CHLORIDE 0.9% 50 ML IVPB IV SCH (21:13)
[2021-08-22] MEDS: HEPARIN 5,000 UNIT/1 ML VIAL SUB-Q SCH ×2 (05:31→14:24)
[2021-08-22 06:45] LABS: Alanine Aminotransferase 37 units/L (7-56); Albumin 3.5 g/dL (3.9-5); Blood Urea Nitrogen 11 mg/dL (7-17); Calcium 8.5 mg/dL (8.4-10.2); Hemolysis Index 5
[2021-08-22 06:52] LABS: BUN/Creatinine Ratio 18
--- NOTE | 2021-08-22 07:12 | Progress Note ---
Assessment and Plan Assessment and plan: 08/21: on room air on encounter and significantly improved. will re-assess for home oxygen and possible d/c this afternoon. 08/22: Still qualifies for home oxygen. Desaturated upon walking. Will plan for discharge tomorrow with home oxygen to ensure a safe discharge. (1) Acute hypoxic respiratory distress Status: Acute Plan to address problem: Admit the patient to the medical floor. Oxygen via nasal cannula 2 L/min. DuoNeb by nebulizer every 4 hours. Albuterol via nebulizer every 4 hours as needed. Rocephin 2 g IV daily. Zithromax 500 mg IV daily. Dexamethasone 6 mg IV daily. We'll do the blood culture and sputum culture. We'll consult infectious disease evaluation Desat to 86% on walk test. advised patient to self prone. Remains on NC at 2l/min (2) COVID 19 pneumonia Status: Acute Qualifiers: Pneumonia type: due to unspecified organism Laterality: bilateral Lung location: unspecified part of lung Qualified Code(s): J18.9 - Pneumonia, unspecified organism Plan to address problem: Oxygen via nasal cannula 3 L/min. DuoNeb by nebulizer every 4 hours. Albuterol via nebulizer every 4 hours as needed. Rocephin 2 g IV daily. Zithromax 500 mg IV daily. We'll do the blood culture and sputum culture. Recheck CBC BMP in the morning follow Covid inflammatory marker. Continue supportive care Follow ID recs (3) Nausea & vomiting Status: Acute Plan to address problem: Pepcid 20 mg p.o. twice daily. Zofran 4 mg every 6 hours as needed. We'll monitor the patient closely (4) Shortness of breath Status: Acute Plan to address problem: Oxygen via nasal cannula 3 L/min. DuoNeb by nebulizer every 4 hours. Albuterol via nebulizer every 4 hours as needed. Rocephin 2 g IV daily. Zithromax 500 mg IV daily. Dexamethasone 6 mg IV daily. (5) DVT prophylaxis Status: Acute Plan to address problem: Heparin 5000 units subcu every 8 hours for DVT prophylaxis. Pepcid 20 mg p.o. twice daily for GI prophylaxis. Patient is a full code History Interval history: No acute complaints. Resting comfortably on encounter. Updated patient that we will anticipate discharge on Daniel after home oxygen is set up. Hospitalist Physical - Physical exam Narrative exam: General appearance: Present: no acute distress, well-nourished, on room air - EENT Eyes: Present: PERRL ENT: hearing intact, clear oral mucosa - Neck Neck: Present: supple, normal ROM - Respiratory Respiratory effort: normal Respiratory: bilateral: diminished (improved) - Cardiovascular Heart Sounds: Present: S1 & S2. Absent: rub, click - Extremities Extremities: pulses symmetrical, No edema Peripheral Pulses: within normal limits - Abdominal General gastrointestinal: Present: soft, non-tender, non-distended, normal bowel sounds Female genitourinary: Present: normal - Integumentary Integumentary: Present: clear, warm, dry - Musculoskeletal Musculoskeletal: gait normal, strength equal bilaterally - Psychiatric Psychiatric: appropriate mood/affect, intact judgment & insight - Neurologic Neurologic: CNII-XII intact, moves all extremities - Constitutional Vitals: Temp Pulse Resp BP Pulse Ox 98.6 F 70 19 98/58 94 08/21/21 16:26 08/21/21 16:26 08/22/21 01:00 08/21/21 18:19 08/22/21 01:00 General appearance: Present: no acute distress, well-nourished Results - Labs CBC & Chem 7: 08/19/21 08:57 08/22/21 05:55 Labs: Laboratory Last Values WBC 6.9 K/mm3 (4.5-11.0) 08/19/21 08:57 RBC 4.01 M/mm3 (3.65-5.03) 08/19/21 08:57 Hgb 11.0 gm/dl (10.1-14.3) 08/19/21 08:57 Hct 32.5 % (30.3-42.9) 08/19/21 08:57 MCV 81 fl (79-97) 08/19/21 08:57 MCH 27 pg (28-32) L 08/19/21 08:57 MCHC 34 % (30-34) 08/19/21 08:57 RDW 17.1 % (13.2-15.2) H 08/19/21 08:57 Plt Count 334 K/mm3 (140-440) 08/19/21 08:57 Lymph % (Auto) 18.3 % (13.4-35.0) 08/19/21 08:57 [place] % (Auto) 6.8 % (0.0-7.3) 08/19/21 08:57 Eos % (Auto) 0.0 % (0.0-4.3) 08/19/21 08:57 Baso % (Auto) 0.3 % (0.0-1.8) 08/19/21 08:57 Lymph # (Auto) 1.3 K/mm3 (1.2-5.4) 08/19/21 08:57 [place] # (Auto) 0.5 K/mm3 (0.0-0.8) 08/19/21 08:57 Eos # (Auto) 0.0 K/mm3 (0.0-0.4) 08/19/21 08:57 Baso # (Auto) 0.0 K/mm3 (0.0-0.1) 08/19/21 08:57 Seg Neutrophils % 74.6 % (40.0-70.0) H 08/19/21 08:57 Seg Neutrophils # 5.2 K/mm3 (1.8-7.7) 08/19/21 08:57 D-Dimer 304.19 ng/mlDDU (0-234) H 08/21/21 07:50 Sodium 141 mmol/L (137-145) 08/22/21 05:55 Potassium 3.1 mmol/L (3.6-5.0) L 08/22/21 05:55 Chloride 104.4 mmol/L (98-107) 08/22/21 05:55 Carbon Dioxide 27 mmol/L (22-30) 08/22/21 05:55 Anion Gap 13 mmol/L 08/22/21 05:55 BUN 11 mg/dL (7-17) 08/22/21 05:55 Creatinine 0.6 mg/dL (0.6-1.2) 08/22/21 05:55 Estimated GFR > 60 ml/min 08/22/21 05:55 BUN/Creatinine Ratio 18 % 08/22/21 05:55 Glucose 99 mg/dL (65-100) 08/22/21 05:55 Calcium 8.5 mg/dL (8.4-10.2) 08/22/21 05:55 Ferritin 144.9 ng/mL (10.0-200.0) 08/22/21 05:55 Total Bilirubin 0.30 mg/dL (0.1-1.2) 08/22/21 05:55 AST 22 units/L (5-40) 08/22/21 05:55 ALT 37 units/L (7-56) 08/22/21 05:55 Alkaline Phosphatase 93 units/L (35-129) 08/22/21 05:55 Lactate Dehydrogenase 369 units/L (91-180) H 08/18/21 22:24 C-Reactive Protein 1.20 mg/dL (0.00-1.30) 08/21/21 07:50 Total Protein 7.5 g/dL (6.3-8.2) 08/22/21 05:55 Albumin 3.5 g/dL (3.9-5) L 08/22/21 05:55 Albumin/Globulin Ratio 0.9 % 08/22/21 05:55 Procalcitonin < 0.05 ng/mL (<0.15) 08/18/21 22:24 HCG, Quant < 2 mIU/mL (0-4) 08/18/21 20:59 Coronavirus (PCR) Positive (Negative) A 08/19/21 Unknown Salas/IV: Voiding Method Toilet Active Medications - Current Medications Current Medications: Generic Name Dose Route Start Last Admin Trade Name Freq PRN Reason Stop Dose Admin Acetaminophen 650 mg 08/18/21 02:00 Acetaminophen 325 Mg Tab PO Q4H PRN Pain MILD(1-3)/Fever >100.5/PICKARD Albuterol 2.5 mg 08/18/21 00:00 Albuterol 2.5 Mg/3 Ml Nebu IH Q4HRT PRN Shortness Of Breath Dexamethasone 6 mg 08/19/21 10:00 08/21/21 09:40 Dexamethasone 4 Mg/Ml Vial IV 08/27/21 10:01 6 mg DAILY ROICO Administration Famotidine 20 mg 08/19/21 10:00 08/21/21 21:13 Famotidine 20 Mg Tab PO 20 mg BID ROCIO Administration Ferrous Sulfate 325 mg 08/19/21 10:00 08/21/21 21:13 Ferrous Sulfate 325 Mg Tab PO 325 mg BID ROCIO Administration Heparin Sodium (Porcine) 5,000 unit 08/19/21 06:00 08/22/21 05:31 Heparin 5,000 Unit/1 Ml Vial SUB-Q 5,000 unit Q8HR ROCIO Administration Hydromorphone HCl 0.5 mg 08/18/21 00:00 Hydromorphone 1 Mg/1 Ml Inj IV Q3H PRN Pain , Severe (7-10) REMDESIVIR 100 mg/ Sodium 250 mls @ 500 mls/hr 08/20/21 21:00 08/21/21 21:12 Chloride IV 08/23/21 21:29 500 mls/hr Q24HR@2100 ROCIO Administration Ondansetron HCl 4 mg 08/18/21 00:00 Ondansetron 4 Mg/2 Ml Inj IV Q8H PRN Nausea And Vomiting Oxycodone/Acetaminophen 1 tab 08/18/21 00:00 Oxycodone /Acetaminophen 5-325mg Tab PO Q6H PRN Pain, Moderate (4-6) Pseudoephedrine/Acetam/Chlorphenir 15 ml 08/19/21 13:02 Guaifenesin/Codeine 100-10mg Oral Liqd 5 Ml PO Q4H PRN Cough Sodium Chloride 10 ml 08/19/21 10:00 08/21/21 21:13 Sodium Chloride 0.9% 10 Ml Flush Syringe IV 10 ml BID ROCIO Administration Sodium Chloride 10 ml 08/18/21 00:00 Sodium Chloride 0.9% 10 Ml Flush Syringe IV PRN PRN LINE FLUSH Sodium Chloride 50 ml 08/19/21 17:00 08/21/21 21:13 Sodium Chloride 0.9% 50 Ml Ivpb IV 08/23/21 21:01 50 ml Q24HR@2100 ROCIO Administration
[2021-08-22] MEDS: dexAMETHasone 4 MG/ML VIAL IV SCH (09:25)
[2021-08-22] MEDS: FAMOTIDINE 20 MG TAB PO SCH (09:25)
[2021-08-22] MEDS: FERROUS SULFATE 325 MG TAB PO SCH (09:26)
[2021-08-22] MEDS ORDERED: POTASSIUM CHLORIDE ER 20 MEQ TAB PO SCH (10:00)
--- NOTE | 2021-08-22 15:33 | Discharge Summary ---
Providers - Providers Date of Admission: 08/19/21 09:19 Date of discharge: 08/22/21 Attending physician: ESE RODRÍGUEZ MD 08/18/21 22:48 Consult to Physician [CONS] Routine Comment: Consulting Provider: MOSHE GRULLON Physician Instructions: Reason For Exam: covid Primary care physician: [employer]CH[employer]OLOGIST Hospitalization Reason for admission: shortness of breath Condition: Critical Hospital course: Assessment and plan: 08/21: on room air on encounter and significantly improved. will re-assess for home oxygen and possible d/c this afternoon. 08/22: Still qualifies for home oxygen. Desaturated upon walking. Will plan for discharge tomorrow with home oxygen to ensure a safe discharge. 08/22: RN paged about patient improvement on home walking eval. Patient saturation on room air ambulating drops to 91%. Can safely discharge. Patient advised to present to ED should she decline. She will be discharged home on remainder of decadron 6 mg course and given instructions to follow up with her primary doctor. (1) Acute hypoxic respiratory distress Status: Acute Plan to address problem: Admit the patient to the medical floor. Oxygen via nasal cannula 2 L/min. DuoNeb by nebulizer every 4 hours. Albuterol via nebulizer every 4 hours as needed. Rocephin 2 g IV daily. Zithromax 500 mg IV daily. Dexamethasone 6 mg IV daily. We'll do the blood culture and sputum culture. We'll consult infectious disease evaluation Desat to 86% on walk test. advised patient to self prone. Remains on NC at 2l/min (2) COVID 19 pneumonia Status: Acute Qualifiers: Pneumonia type: due to unspecified organism Laterality: bilateral Lung location: unspecified part of lung Qualified Code(s): J18.9 - Pneumonia, unspecified organism Plan to address problem: Oxygen via nasal cannula 3 L/min. DuoNeb by nebulizer every 4 hours. Albuterol via nebulizer every 4 hours as needed. Rocephin 2 g IV daily. Zithromax 500 mg IV daily. We'll do the blood culture and sputum culture. Recheck CBC BMP in the morning follow Covid inflammatory marker. Continue supportive care Follow ID recs (3) Nausea & vomiting Status: Acute Plan to address problem: Pepcid 20 mg p.o. twice daily. Zofran 4 mg every 6 hours as needed. We'll monitor the patient closely (4) Shortness of breath Status: Acute Plan to address problem: Oxygen via nasal cannula 3 L/min. DuoNeb by nebulizer every 4 hours. Albuterol via nebulizer every 4 hours as needed. Rocephin 2 g IV daily. Zithromax 500 mg IV daily. Dexamethasone 6 mg IV daily. (5) DVT prophylaxis Status: Acute Plan to address problem: Heparin 5000 units subcu every 8 hours for DVT prophylaxis. Pepcid 20 mg p.o. twice daily for GI prophylaxis. Patient is a full code Disposition: HOME / SELF CARE / HOMELESS Final Discharge Diagnosis (Prints w/discharge instructions): Acute Respiratory Failure with hypoxia due to COVID Pneumonia Time spent for discharge: 35 - Discharge Diagnoses (1) Pneumonia due to COVID-19 virus Status: Acute (2) Acute respiratory failure with hypoxia Status: Acute (3) COVID-19 Status: Acute (4) Fever Status: Acute Qualifiers: Fever type: unspecified Qualified Code(s): R50.9 - Fever, unspecified (5) Person under investigation for COVID-19 Status: Acute (6) Pneumonia Status: Acute Qualifiers: Pneumonia type: due to unspecified organism Laterality: bilateral Lung location: unspecified part of lung Qualified Code(s): J18.9 - Pneumonia, unspecified organism (7) Respiratory failure Status: Acute Qualifiers: Chronicity: acute Respiratory failure complication: hypoxia Qualified Code(s): J96.01 - Acute respiratory failure with hypoxia (8) DVT prophylaxis Status: Acute Core Measure Documentation - Palliative Care Palliative Care/ Comfort Measures: Not Applicable - Core Measures Any of the following diagnoses?: none Exam - Physical Exam Narrative exam: General appearance: Present: no acute distress, well-nourished, on room air - EENT Eyes: Present: PERRL ENT: hearing intact, clear oral mucosa - Neck Neck: Present: supple, normal ROM - Respiratory Respiratory effort: normal Respiratory: bilateral: diminished (improved) - Cardiovascular Heart Sounds: Present: S1 & S2. Absent: rub, click - Extremities Extremities: pulses symmetrical, No edema Peripheral Pulses: within normal limits - Abdominal General gastrointestinal: Present: soft, non-tender, non-distended, normal bowel sounds Female genitourinary: Present: normal - Integumentary Integumentary: Present: clear, warm, dry - Musculoskeletal Musculoskeletal: gait normal, strength equal bilaterally - Psychiatric Psychiatric: appropriate mood/affect, intact judgment & insight - Neurologic Neurologic: CNII-XII intact, moves all extremities - Constitutional Vitals: Temp Pulse Resp BP Pulse Ox 97.9 F 57 L 19 100/54 94 08/22/21 05:40 08/22/21 05:40 08/22/21 13:00 08/22/21 05:40 08/22/21 13:00 Plan Follow up with: PRIMARY CARE, [Primary Care Provider] - 7 Days Prescriptions: dexAMETHasone [Decadron] 6 mg PO DAILY 5 Days #5 tab
[2021-08-22 18:15] VITALS: BP 136/84
== END 2021-08-22 19:24 | disposition home or self-care (01) | DRG 177 ==
LOC: ED 19:30 → 3A 22:48 → OBSVTOIN 08-19 09:19
PROVIDERS: ADMIT Hospitalist; ATTEND Internal Medicine
PROC: XW033E5 Introduction of Remdesivir Anti-infective into Peripheral Vein, Percutaneous Approach, New Technology Group 5 (ICD-10-PCS; principal; 2021-08-19)
DX: U07.1 COVID-19 (principal); J12.82 Pneumonia due to coronavirus disease 2019; J96.01 Acute respiratory failure with hypoxia; Z68.41 Body mass index [BMI] 40.0-44.9, adult; E66.01 Morbid (severe) obesity due to excess calories
CPT/HCPCS: 36415; 71046; 80048; 80053; 82728; 82947; 83615; 84145; 84702; 85025; 85379; 86140; 93005; 94760; G0378; J0456; J0696; J1100; J1644; J7030; J7050; U0003